=== PATIENT | female | born 1975 | race American Indian/Alaskan Native ===

== ENCOUNTER 2018-02-16 08:38 | Emergency (ER) | payer SELFPAY ==
[2018-02-16 08:52] VITALS: BP 126/69
[2018-02-16 10:12] LABS: Basophils # (Auto) 0.1 K/mm3 (0.0-0.1); Basophils % (Auto) 1.4 % (0.0-1.8); Eosinophils # (Auto) 0.1 K/mm3 (0.0-0.4); Eosinophils % (Auto) 1.1 % (0.0-4.3); Hematocrit 24.3 % (30.3-42.9); Hemoglobin 7.6 gm/dl (10.1-14.3); Lymphocytes # (Auto) 1.4 K/mm3 (1.2-5.4); Lymphocytes % (Auto) 17.9 % (13.4-35.0); Mean Corpuscular HGB Conc 31 % (30-34); Mean Corpuscular Hemoglobin 23 pg (28-32); Mean Corpuscular Volume 74 fl (79-97); Monocytes # (Auto) 0.4 K/mm3 (0.0-0.8); Monocytes % (Auto) 4.5 % (0.0-7.3); Platelet Count 258 K/mm3 (140-440); Red Blood Count 3.27 M/mm3 (3.65-5.03); Red Cell Distribution Width 26.1 % (13.2-15.2)
--- NOTE | 2018-02-16 11:58 | Emergency Department Report ---
HPI - General Chief Complaint: Vaginal Bleeding Time Seen by Provider: 02/16/18 11:46 - HPI HPI: The patient is a 43-year-old female presents for evaluation of vaginal bleeding. The patient reports experiencing constant and severe vaginal bleeding for the past 2 weeks, exacerbated with straining on urination/ defecation. The patient denies fever, chills, night sweats, hematemesis, recurrent epistaxis, easy bruising or bleeding, blood in the stool, dark tarry stool, hematuria, flank pain, inability to pass flatus. ED Past Medical Hx - Past Medical History Previous Medical History?: No - Surgical History Additional Surgical History: TUBAL LIGATION - Social History Smoking Status: Never Smoker Substance Use Type: None - Medications Home Medications: Home Medications Medication Instructions Recorded Confirmed Last Taken Type Ferrous Sulfate [Iron] 325 mg PO BID #60 tablet 02/16/18 Unknown Rx Ferrous Sulfate, Dried [Slow 160 mg PO BID #30 tablet.er 02/16/18 Unknown Rx Release Iron 160 Mg tab] medroxyPROGESTERone ACETATE 5 mg PO QDAY #5 tablet 02/16/18 Unknown Rx [Provera] ED Review of Systems ROS: Stated complaint: VAGINAL BLEEDING Other details as noted in HPI Constitutional: denies: fever ENT: denies: throat or neck pain Respiratory: denies: cough, shortness of breath Cardiovascular: denies: chest pain Endocrine: denies unexplained weight loss or gain Gastrointestinal: denies: abdominal pain, nausea Genitourinary: reports vaginal bleeding denies: dysuria Musculoskeletal: denies: leg swelling Skin: denies: rash Neurological: denies: headache Hematological/Lymphatic: denies: easy bleeding or easy bruising Psych: denies sadness or hopelessness Physical Exam - Physical Exam Vital Signs: Vital Signs 02/16/18 08:46 Temperature 99.5 F Pulse Rate 60 Respiratory 18 Rate Blood Pressure 126/69 O2 Sat by Pulse 100 Oximetry Physical Exam: General: well-nourished, well-developed, no acute distress Head: Normocephalic, atraumatic Eyes: normal sclera ENT: Mucous membranes are pale and dry Neck: trachea midline, neck supple, No neck stiffness, no cervical adenopathy Respiratory: Breath sounds equal bilaterally, no wheezing, rales, or rhonchi Cardio: S1 and S2 present, no murmurs, rubs, gallops, capillary refill is delayed Abdomen: Normoactive bowel sounds, soft abdomen, no tenderness Musc: No pitting edema Skin: No rash Neuro: no facial drooping, normal speech Psych: Normal affect ED Course Vital Signs 02/16/18 08:46 Temperature 99.5 F Pulse Rate 60 Respiratory 18 Rate Blood Pressure 126/69 O2 Sat by Pulse 100 Oximetry ED Medical Decision Making - Lab Data Result diagrams: 02/16/18 09:31 - Medical Decision Making The patient was seen and examined by myself. The patient is placed on a cardiac rehab nurse and continuous pulse ox. On initial evaluation, the patient was found to be in no distress. Evaluation orders were placed. Lab results revealed elevated hemoglobin of 7.6, low hematocrit, and otherwise labs are grossly unrevealing including normal platelet levels and negative test. The patient is given a prescription for ferrous sulfate for treatment of her anemia. The patient was reevaluated and reported that she remains asymptomatic. The patient is stable for discharge with outpatient follow-up. The patient is given follow-up and return instructions. The patient expressed understanding and agreed with the plan. The patient is discharged in stable condition. Critical care attestation.: If time is entered above; I have spent that time in minutes in the direct care of this critically ill patient, excluding procedure time. ED Disposition Clinical Impression: Vaginal bleeding, DUB (dysfunctional uterine bleeding), Chronic blood loss anemia, Orthostatic lightheadedness Disposition: - TO HOME OR SELFCARE Is pt being admited?: No Does the pt Need Aspirin: No Condition: Stable Instructions: Dysfunctional Uterine Bleeding (ED), Menorrhagia (ED), Anemia (ED ) Prescriptions: Ferrous Sulfate [Iron] 325 mg PO BID #60 tablet Ferrous Sulfate, Dried [Slow Release Iron 160 Mg tab] 160 mg PO BID #30 tablet.er medroxyPROGESTERone ACETATE [Provera] 5 mg PO QDAY #5 tablet Referrals: RENATO SCOTT MD [Staff Physician] - 3-5 Days [facility] [Provider Group] - 3-5 Days Forms: Work/School Release Form(ED) Time of Disposition: 11:52
== END 2018-02-16 12:18 | disposition home or self-care (01) ==
LOC: ED 08:38
DX: N93.8 Other specified abnormal uterine and vaginal bleeding (principal); Z98.51 Tubal ligation status
CPT/HCPCS: 36415; 84703; 85025; 86850; 86900; 86901; 99283

== ENCOUNTER 2018-12-22 12:25 | Inpatient (IN) | payer BC ==
--- NOTE | 2018-12-22 12:37 | Emergency Department Report ---
Chief Complaint: Vaginal Bleeding Stated Complaint: HEAVY BLEEDING/WEAKNESS/SOB Time Seen by Provider: 12/22/18 12:33 - HPI History of Present Illness: This is a 43 y.o. female that presents with vaginal bleeding and lightheadedness. Patient reports vaginal bleeding started 3 days ago. She is passing large amount of clots. She reports dizziness started today. She denies back. - ROS Review of Systems: vaginal bleeding and pelvic pain - Exam Vital Signs: Vital Signs 12/22/18 12:32 Temperature 98.2 F Pulse Rate 84 Respiratory 16 Rate Blood Pressure 123/33 [Left] O2 Sat by Pulse 100 Oximetry MSE screening note: Focused history and physical exam performed. Due to findings the following was ordered: labs fast track for further evaluation. ED Disposition for MSE Condition: Stable
[2018-12-22] MEDS ORDERED: NACL 0.9% 1000 ML 1,000 ML IV ONE (13:38)
[2018-12-22 13:39] LABS: Mean Corpuscular HGB Conc 28 % (30-34); Red Blood Count 2.31 M/mm3 (3.65-5.03)
[2018-12-22 13:48] LABS: Mean Corpuscular Volume 63 fl (79-97); Red Cell Distribution Width 29.9 % (13.2-15.2)
--- NOTE | 2018-12-22 13:48 | Emergency Department Report ---
ED Female HPI - General Chief complaint: Vaginal Bleeding Stated complaint: HEAVY BLEEDING/WEAKNESS/SOB Time Seen by Provider: 12/22/18 12:33 Source: patient Mode of arrival: Ambulatory Limitations: No Limitations - History of Present Illness Initial comments: 43-year-old female states that she has just been having spotting for the past several months. She was treated for a "bacterial infection" by her varnisher in September (2017). She is status post tubal ligation. She states for the past 3 or 4 days she has been having heavy bleeding. She passed several clots today. She did note dyspnea on exertion and easy fatigability. She is not complaining of abdominal pain or pelvic pain. She is not short of breath at rest. MD Complaint: vaginal bleeding -: days(s) Improves with: none Worsens with: none - Related Data Previous Rx's Medication Instructions Recorded Last Taken Type Azithromycin [Zithromax TAB] 500 mg PO QDAY #5 tablet 12/25/18 Unknown Rx Ferrous Sulfate [Feosol 325 MG tab] 325 mg PO BID #60 tablet 12/25/18 Unknown Rx medroxyPROGESTERone ACETATE 10 mg PO QDAY #10 tablet 12/25/18 Unknown Rx [Provera] Allergies Allergy/AdvReac Type Severity Reaction Status Date / Time acetaminophen [From Percocet] Allergy Itching Verified 12/22/18 12:32 oxycodone [From Percocet] Allergy Itching Verified 12/22/18 12:32 Penicillins Allergy Hives Verified 02/16/18 08:46 ED Review of Systems ROS: Stated complaint: HEAVY BLEEDING/WEAKNESS/SOB Other details as noted in HPI Constitutional: denies: chills, fever Eyes: denies: eye pain, eye discharge, vision change ENT: denies: ear pain, throat pain Respiratory: SOB with exertion. denies: cough, wheezing Cardiovascular: denies: chest pain, palpitations Endocrine: no symptoms reported Gastrointestinal: denies: abdominal pain, nausea, diarrhea Genitourinary: as per HPI. denies: urgency, dysuria, discharge Musculoskeletal: denies: back pain, joint swelling, arthralgia Skin: denies: rash, lesions Neurological: denies: headache, weakness, paresthesias Psychiatric: denies: anxiety, depression Hematological/Lymphatic: denies: easy bleeding, easy bruising ED Past Medical Hx - Past Medical History Previous Medical History?: No - Surgical History Past Surgical History?: Yes Additional Surgical History: TUBAL LIGATION - Social History Smoking Status: Never Smoker Substance Use Type: None - Medications Home Medications: Home Medications Medication Instructions Recorded Confirmed Last Taken Type Azithromycin [Zithromax TAB] 500 mg PO QDAY #5 tablet 12/25/18 Unknown Rx Ferrous Sulfate [Feosol 325 MG tab] 325 mg PO BID #60 tablet 12/25/18 Unknown Rx medroxyPROGESTERone ACETATE 10 mg PO QDAY #10 tablet 12/25/18 Unknown Rx [Provera] ED Physical Exam - General Limitations: No Limitations General appearance: alert, in no apparent distress, other (conjunctival pallor moderate) - Head Head exam: Present: atraumatic, normocephalic - Eye Eye exam: Present: normal appearance. Absent: scleral icterus - ENT ENT exam: Present: mucous membranes moist - Neck Neck exam: Present: normal inspection. Absent: tenderness, meningismus - Respiratory Respiratory exam: Present: normal lung sounds bilaterally. Absent: respiratory distress - Cardiovascular Cardiovascular Exam: Present: regular rate, normal rhythm. Absent: systolic murmur, diastolic murmur, rubs, gallop - GI/Abdominal GI/Abdominal exam: Present: soft, normal bowel sounds. Absent: distended, tenderness, guarding, rebound, rigid - External exam: Present: other (no active bleeding at the introitus now) - Extremities Exam Extremities exam: Present: normal inspection - Back Exam Back exam: Present: normal inspection - Neurological Exam Neurological exam: Present: alert, oriented X3, CN II-XII intact. Absent: motor sensory deficit - Psychiatric Psychiatric exam: Present: normal affect, normal mood - Skin Skin exam: Present: warm, dry, intact, normal color. Absent: rash ED Course Vital Signs 12/22/18 12/22/18 12/22/18 12:32 14:00 14:31 Temperature 98.2 F 98 F Pulse Rate 84 88 84 Respiratory 16 16 16 Rate Blood Pressure 132/59 Blood Pressure 123/33 103/86 [Left] O2 Sat by Pulse 100 100 100 Oximetry 12/22/18 12/22/18 12/22/18 14:46 15:16 15:46 Temperature 98 F 98.8 F Pulse Rate 82 76 88 Respiratory 16 14 14 Rate Blood Pressure 132/59 118/51 131/65 Blood Pressure [Left] O2 Sat by Pulse 94 98 98 Oximetry 12/22/18 12/22/18 12/22/18 16:16 16:44 16:59 Temperature 98.8 F 98.8 F 98.8 F Pulse Rate 68 68 66 Respiratory 14 14 17 Rate Blood Pressure 130/67 148/61 142/55 Blood Pressure [Left] O2 Sat by Pulse 98 100 98 Oximetry 12/22/18 12/22/18 12/22/18 17:29 17:59 18:29 Temperature 99 F 99 F 98.7 F Pulse Rate 63 76 70 Respiratory 17 16 12 Rate Blood Pressure 127/62 118/60 118/62 Blood Pressure [Left] O2 Sat by Pulse 100 100 100 Oximetry 12/22/18 12/22/18 12/22/18 19:24 19:30 19:40 Temperature Pulse Rate 64 83 Respiratory 19 17 16 Rate Blood Pressure Blood Pressure [Left] O2 Sat by Pulse 100 100 Oximetry 12/22/18 12/22/18 12/22/18 19:50 20:00 20:10 Temperature 100 F H Pulse Rate 93 H 83 101 H Respiratory 18 13 14 Rate Blood Pressure Blood Pressure 117/60 [Left] O2 Sat by Pulse 100 92 99 Oximetry 12/22/18 12/22/18 12/22/18 20:20 20:30 20:40 Temperature Pulse Rate 88 88 91 H Respiratory 23 18 22 Rate Blood Pressure Blood Pressure [Left] O2 Sat by Pulse 98 95 73 L Oximetry 12/22/18 12/22/18 20:50 21:00 Temperature Pulse Rate 85 75 Respiratory 23 16 Rate Blood Pressure Blood Pressure [Left] O2 Sat by Pulse 74 L 82 L Oximetry - Reevaluation(s) Reevaluation #1: Awaiting slide review by hematology. The initial report of the platelet count was 25,000. I would be surprised if it's really that low. There is no additional coagulopathy. Patient is being transfused first 2 units[address] Case discussed with Dr[address] Parsons, [employer] OFFICER. Bridge orders to telemetry. Consult to Dr. Mayes regarding thrombocytopenia. 12/22/18 14:46 Reevaluation #2: Patient will likely require more than 2 units. Repeat CBC at 5 PM to assess progress as well as recheck the platelet count. 12/22/18 14:48 ED Medical Decision Making - Lab Data Result diagrams: 12/25/18 05:38 03/21/19 05:17 Laboratory Results - last 24 hr 12/22/18 12/22/18 12/22/18 12:50 12:53 12:57 WBC 13.6 H RBC 2.31 L Hgb 4.0 L* Hct 14.5 L* MCV 63 L MCH 17 L MCHC 28 L RDW 29.9 H PT INR APTT Total Bilirubin < 0.20 Direct Bilirubin < 0.2 Indirect Bilirubin 0.0 AST 15 ALT 8 Alkaline Phosphatase 56 Total Protein 6.2 L Albumin 3.8 L Albumin/Globulin Ratio 1.6 HCG, Qual Urine Color Yan[place] Urine Turbidity Cloudy Urine pH 6.0 Ur Specific [place] 1.020 Urine Protein 100 mg/dl Urine Glucose (UA) Neg Urine Ketones Neg Urine Blood Lg Urine Nitrite Neg Urine Bilirubin Neg Urine Urobilinogen < 2.0 Ur Leukocyte Esterase Tr Urine WBC (Auto) 3.0 Urine RBC (Auto) > 182.0 Urine Mucus Few Blood Type Antibody Screen Crossmatch 12/22/18 12/22/18 12/22/18 12:57 12:57 13:50 WBC RBC Hgb Hct MCV MCH MCHC RDW PT 14.6 INR 1.07 APTT 20.0 L Total Bilirubin Direct Bilirubin Indirect Bilirubin AST ALT Alkaline Phosphatase Total Protein Albumin Albumin/Globulin Ratio HCG, Qual Negative Urine Color Urine Turbidity Urine pH Ur Specific [place] Urine Protein Urine Glucose (UA) Urine Ketones Urine Blood Urine Nitrite Urine Bilirubin Urine Urobilinogen Ur Leukocyte Esterase Urine WBC (Auto) Urine RBC (Auto) Urine Mucus Blood Type A POSITIVE Antibody Screen Negative Crossmatch See Detail Laboratory Results - last 24 hr 12/22/18 12/22/18 12/22/18 12:50 12:53 12:57 WBC 13.6 H RBC 2.31 L Hgb 4.0 L* Hct 14.5 L* MCV 63 L MCH 17 L MCHC 28 L RDW 29.9 H Plt Count 25 L Add Manual Diff Complete Total Counted 100 Seg Neuts % (Manual) 88.0 H Band Neutrophils % 1.0 Lymphocytes % (Manual) 5.0 L Reactive Lymphs % (Man) 0 Monocytes % (Manual) 5.0 Eosinophils % (Manual) 0 Basophils % (Manual) 1.0 Metamyelocytes % 0 Myelocytes % 0 Promyelocytes % 0 Blast Cells % 0 Nucleated RBC % Not Reportable Seg Neutrophils # Man 12.0 H Band Neutrophils # 0.1 Lymphocytes # (Manual) 0.7 L Abs React Lymphs (Man) 0.0 Monocytes # (Manual) 0.7 Eosinophils # (Manual) 0.0 Basophils # (Manual) 0.1 Metamyelocytes # 0.0 Myelocytes # 0.0 Promyelocytes # 0.0 Blast Cells # 0.0 WBC Morphology Not Reportable Hypersegmented Neuts Not Reportable Hyposegmented Neuts Not Reportable Hypogranular Neuts Not Reportable Smudge Cells Not Reportable Toxic Granulation Not Reportable Toxic Vacuolation Not Reportable Dohle Bodies Not Reportable Pelger-Huet Anomaly Not Reportable Tu Rods Not Reportable Platelet Estimate Consistent w auto Clumped Platelets Not Reportable Plt Clumps, EDTA Not Reportable Large Platelets Not Reportable Giant Platelets Not Reportable Platelet Satelliting Not Reportable Plt Morphology Comment Not Reportable RBC Morphology Not Reportable Dimorphic RBCs Not Reportable Polychromasia Not Reportable Hypochromasia 3+ Poikilocytosis Not Reportable Anisocytosis 3+ Microcytosis 2+ Macrocytosis Not Reportable Spherocytes Not Reportable Pappenheimer Bodies Not Reportable Sickle Cells Not Reportable Target Cells Not Reportable Tear Drop Cells Few Ovalocytes Not Reportable Helmet Cells Not Reportable [place] Bodies Not Reportable Nettie Rings Not Reportable [place] Cells Not Reportable Bite Cells Not Reportable Crenated Cell Not Reportable Elliptocytes Not Reportable Acanthocytes (Spur) Not Reportable Rouleaux Not Reportable Hemoglobin C Crystals Not Reportable Schistocytes Not Reportable Malaria parasites Not Reportable Jordi Bodies Not Reportable Hem Pathologist Commnt No PT INR APTT Total Bilirubin < 0.20 Direct Bilirubin < 0.2 Indirect Bilirubin 0.0 AST 15 ALT 8 Alkaline Phosphatase 56 Total Protein 6.2 L Albumin 3.8 L Albumin/Globulin Ratio 1.6 HCG, Qual Urine Color [place] Urine Turbidity Cloudy Urine pH 6.0 Ur Specific [place] 1.020 Urine Protein 100 mg/dl Urine Glucose (UA) Neg Urine Ketones Neg Urine Blood Lg Urine Nitrite Neg Urine Bilirubin Neg Urine Urobilinogen < 2.0 Ur Leukocyte Esterase Tr Urine WBC (Auto) 3.0 Urine RBC (Auto) > 182.0 Urine Mucus Few Blood Type Antibody Screen Crossmatch 03/12/22/18 12/22/18 12:57 12:57 13:50 WBC RBC Hgb Hct MCV MCH MCHC RDW Plt Count Add Manual Diff Total Counted Seg Neuts % (Manual) Band Neutrophils % Lymphocytes % (Manual) Reactive Lymphs % (Man) Monocytes % (Manual) Eosinophils % (Manual) Basophils % (Manual) Metamyelocytes % Myelocytes % Promyelocytes % Blast Cells % Nucleated RBC % Seg Neutrophils # Man Band Neutrophils # Lymphocytes # (Manual) Abs React Lymphs (Man) Monocytes # (Manual) Eosinophils # (Manual) Basophils # (Manual) Metamyelocytes # Myelocytes # Promyelocytes # Blast Cells # WBC Morphology Hypersegmented Neuts Hyposegmented Neuts Hypogranular Neuts Smudge Cells Toxic Granulation Toxic Vacuolation Dohle Bodies Pelger-Huet Anomaly Tu Rods Platelet Estimate Clumped Platelets Plt Clumps, EDTA Large Platelets Giant Platelets Platelet Satelliting Plt Morphology Comment RBC Morphology Dimorphic RBCs Polychromasia Hypochromasia Poikilocytosis Anisocytosis Microcytosis Macrocytosis Spherocytes Pappenheimer Bodies Sickle Cells Target Cells Tear Drop Cells Ovalocytes Helmet Cells [place] Bodies Nettie Rings Gabrielle Cells Bite Cells Crenated Cell Elliptocytes Acanthocytes (Spur) Rouleaux Hemoglobin C Crystals Schistocytes Malaria parasites Jordi Bodies Hem Pathologist Commnt PT 14.6 INR 1.07 APTT 20.0 L Total Bilirubin Direct Bilirubin Indirect Bilirubin AST ALT Alkaline Phosphatase Total Protein Albumin Albumin/Globulin Ratio HCG, Qual Negative Urine Color Urine Turbidity Urine pH Ur Specific [place] Urine Protein Urine Glucose (UA) Urine Ketones Urine Blood Urine Nitrite Urine Bilirubin Urine Urobilinogen Ur Leukocyte Esterase Urine WBC (Auto) Urine RBC (Auto) Urine Mucus Blood Type A POSITIVE Antibody Screen Negative Crossmatch See Detail Critical Care Time: Yes Critical care time in (mins) excluding proc time.: 60 Critical care attestation.: If time is entered above; I have spent that time in minutes in the direct care of this critically ill patient, excluding procedure time. ED Disposition Clinical Impression: Vaginal bleeding, Symptomatic anemia, Thrombocytopenia Disposition: OP ADMIT IP TO THIS HOSP Is pt being admited?: Yes Does the pt Need Aspirin: No Condition: Good
[2018-12-22 13:51] LABS: Hematocrit 14.5 % (30.3-42.9)
[2018-12-22] MEDS ORDERED: NACL 0.9% 500 ML 500 ML IV ONE (13:55)
[2018-12-22 13:56] LABS: Bilirubin,Urine NEG (Negative); Blood,Urine LG (Negative); Mucus,Urine FEW /HPF; Urobilinogen,Urine < 2.0 mg/dL (<2.0)
[2018-12-22 14:05] LABS: Color,Urine Amber (Yellow); RBC,Urine > 182.0 /HPF (0.0-6.0)
[2018-12-22 14:13] LABS: Alanine Aminotransferase 8 units/L (7-56); Albumin 3.8 g/dL (3.9-5)
[2018-12-22 14:22] LABS: INR 1.07 (0.87-1.13)
[2018-12-22 14:23] LABS: Bilirubin,Direct < 0.2 mg/dL (0-0.2)
[2018-12-22 14:45] LABS: Anisocytosis 3+; Band Neutrophils # (Manual) 0.1 K/mm3; Eosinophils % (Manual) 0 % (0.0-4.3); Hypochromasia 3+; Platelet Estimate Consistent w Auto; Tear Drop Cells Few; Total Cells Counted 100
[2018-12-22 14:47] LABS: Platelet Count 25 K/mm3 (140-440)
--- NOTE | 2018-12-22 14:58 | XRay Report ---
AP CHEST: HISTORY: Difficulty in breathing AP view of the chest demonstrates a normal mediastinal and cardiac contour with clear lungs and normal bony and soft tissue structures. IMPRESSION: Unremarkable AP chest.
[2018-12-22 15:10] LABS: BUN/Creatinine Ratio 10; Blood Urea Nitrogen 6 mg/dL (7-17); Calcium 8.3 mg/dL (8.4-10.2); Hemolysis Index 0
--- NOTE | 2018-12-22 15:37 | Consultation ---
History of Present Illness - Reason for Consult Consult date: 12/22/18 medical management Requesting physician: BIJAN ALEX - History of Present Illness 43 YO Female with Menorrhagia, Anemia presents to ED for evaluation. Pt seen and evaluated in ED and found to have Symptomatic Anemia. Pt seen Consult placed for medical management. Pt found to have SIRS and Acidosis. Pt denies fever, chills, CP, Palpitations, NVD, Trauma, Skin Rash, BRBPR. Pt initiated on empiric IV antibiotic therapy with repeat CBC in AM. Pt undergoing PRBC transfusion at time of exam. Past History Past Medical History: anemia, other (menorrhagia) Past Surgical History: Other (tubal ligation) Social history: single. denies: smoking, alcohol abuse, prescription drug abuse Family history: no significant family history (reviewed) Medications and Allergies Allergies Allergy/AdvReac Type Severity Reaction Status Date / Time acetaminophen [From Percocet] Allergy Itching Verified 12/22/18 12:32 oxycodone [From Percocet] Allergy Itching Verified 12/22/18 12:32 Penicillins Allergy Hives Verified 02/16/18 08:46 Home Medications Medication Instructions Recorded Confirmed Last Taken Type No Known Home Medications [No 12/22/18 12/22/18 Unknown History Reported Home Medications] Review of Systems Constitutional: weakness, no weight loss, no weight gain, no fever Ears, nose, mouth and throat: no ear pain, no ear discharge, no tinnitis, no decreased hearing, no nose pain Breasts: no change in shape, no swelling, no mass Cardiovascular: no chest pain, no orthopnea, no palpitations, no rapid/irregular heart beat, no edema Respiratory: no cough, no cough with sputum, no excessive sputum, no hemoptysis Gastrointestinal: no nausea, no vomiting, no diarrhea, no constipation Genitourinary Female: menorrhagia, no pelvic pain, no flank pain Rectal: no pain, no incontinence, no bleeding Musculoskeletal: no neck stiffness, no neck pain, no shooting arm pain, no arm numbness/tingling, no low back pain, no shooting leg pain Integumentary: no rash, no pruritis, no jaundice, no boils Neurological: no transient paralysis, no paralysis, no weakness, no parathesias, no numbness, no tingling Psychiatric: no anxiety, no memory loss, no sleep disturbances, no insomnia, no hypersomnia Endocrine: no cold intolerance, no heat intolerance, no polyphagia, no excessive thirst, no polydipsia, no excessive sweating Hematologic/Lymphatic: no easy bruising, no easy bleeding Allergic/Immunologic: no urticaria, no allergic rhinitis, no wheezing Exam - Constitutional Vitals: Temp Pulse Resp BP Pulse Ox 98 F 82 16 132/59 94 12/22/18 14:46 12/22/18 14:46 12/22/18 14:46 12/22/18 14:46 12/22/18 14:46 General appearance: Present: mild distress, well-nourished - EENT Eyes: Present: PERRL ENT: hearing intact, clear oral mucosa - Neck Neck: Present: supple, normal ROM - Respiratory Respiratory effort: normal Respiratory: bilateral: CTA - Cardiovascular Heart Sounds: Present: S1 & S2. Absent: rub, click - Extremities Extremities: pulses symmetrical, No edema Peripheral Pulses: within normal limits - Abdominal General gastrointestinal: Present: soft, non-tender, non-distended, normal bowel sounds Female genitourinary: Present: normal - Integumentary Integumentary: Present: clear, warm, dry - Musculoskeletal Musculoskeletal: gait normal, strength equal bilaterally - Psychiatric Psychiatric: appropriate mood/affect, intact judgment & insight - Neurologic Neurologic: CNII-XII intact, moves all extremities Results - Labs CBC & Chem 7: 12/22/18 12:57 12/22/18 12:52 Labs: Abnormal lab results 12/22/18 12/22/18 12/22/18 Range/Units 12:52 12:53 12:57 WBC 13.6 H (4.5-11.0) K/mm3 RBC 2.31 L (3.65-5.03) M/mm3 Hgb 4.0 L* (10.1-14.3) gm/dl Hct 14.5 L* (30.3-42.9) % MCV 63 L (79-97) fl MCH 17 L (28-32) pg MCHC 28 L (30-34) % RDW 29.9 H (13.2-15.2) % Plt Count 25 L (140-440) K/mm3 Seg Neuts % (Manual) 88.0 H (40.0-70.0) % Lymphocytes % (Manual) 5.0 L (13.4-35.0) % Seg Neutrophils # Man 12.0 H (1.8-7.7) K/mm3 Lymphocytes # (Manual) 0.7 L (1.2-5.4) K/mm3 APTT (24.2-36.6) Sec. Carbon Dioxide 19 L (22-30) mmol/L BUN 6 L (7-17) mg/dL Creatinine 0.6 L (0.7-1.2) mg/dL Calcium 8.3 L (8.4-10.2) mg/dL Total Protein 6.2 L (6.3-8.2) g/dL Albumin 3.8 L (3.9-5) g/dL Crossmatch 12/22/18 12/22/18 Range/Units 12:57 13:50 WBC (4.5-11.0) K/mm3 RBC (3.65-5.03) M/mm3 Hgb (10.1-14.3) gm/dl Hct (30.3-42.9) % MCV (79-97) fl MCH (28-32) pg MCHC (30-34) % RDW (13.2-15.2) % Plt Count (140-440) K/mm3 Seg Neuts % (Manual) (40.0-70.0) % Lymphocytes % (Manual) (13.4-35.0) % Seg Neutrophils # Man (1.8-7.7) K/mm3 Lymphocytes # (Manual) (1.2-5.4) K/mm3 APTT 20.0 L (24.2-36.6) Sec. Carbon Dioxide (22-30) mmol/L BUN (7-17) mg/dL Creatinine (0.7-1.2) mg/dL Calcium (8.4-10.2) mg/dL Total Protein (6.3-8.2) g/dL Albumin (3.9-5) g/dL Crossmatch See Detail Assessment and Plan - Patient Problems (1) SIRS (systemic inflammatory response syndrome) Current Visit: Yes Status: Acute Plan to address problem: Empiric IV antibiotic therpay, CBC reviewed, repeat cbc in am. (2) Acidosis Current Visit: Yes Status: Acute Plan to address problem: IVF resuscitation therapy, repeat bmp in am. (3) Symptomatic anemia Current Visit: Yes Status: Acute Plan to address problem: PRBC transfusion as per primary team. (4) Thrombocytopenia Current Visit: Yes Status: Acute Plan to address problem: Platelet count normal at last admission. Repeat platelet count, consider platelet transfusion and hematology consult if repeat platelet count in still low. No active bleeding at time of exam. no skin petechiae.
[2018-12-22] MEDS ORDERED: VANCOMYCIN/NS 1 GM/250 ML 1 GM/250 ML BAG IV ONE (15:46)
[2018-12-22] MEDS ORDERED: NACL 0.45% 1,000 ML IV SCH (16:00)
--- NOTE | 2018-12-22 18:52 | History and Physical Report ---
History of Present Illness Date of examination: 12/22/18 Date of admission: 12/22/18 14:51 Chief complaint: Prolonged heavy vaginal bleeding History of present illness: Pt is a 43yo BF LMP 10/22/18 then she has just been having spotting for the past several months. She was treated for a "bacterial infection" by her appraisal technician in September (2017). She is status post tubal ligation. She states for the past 3 or 4 days she has been having heavy bleeding. She passed several clots today. She did note dyspnea on exertion and easy fatigability. She is not complaining of abdominal pain or pelvic pain. She is not short of breath at rest. 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 denies: smoking, alcohol abuse, prescription drug abuse - Obstetrical History : 3 Para: 3 (all 's) Number of Living Children: 3 Medications and Allergies Allergies Allergy/AdvReac Type Severity Reaction Status Date / Time acetaminophen [From Percocet] Allergy Itching Verified 12/22/18 12:32 oxycodone [From Percocet] Allergy Itching Verified 12/22/18 12:32 Penicillins Allergy Hives Verified 02/16/18 08:46 Home Medications Medication Instructions Recorded Confirmed Last Taken Type No Known Home Medications [No 12/22/18 12/22/18 Unknown History Reported Home Medications] Active Meds: Active Medications Sodium Chloride (Nacl 0.45%) 1,000 mls @ 100 mls/hr IV DIRECT KLAUS Review of Systems All systems: negative - Vital Signs Vital signs: Vital Signs Temp Pulse Resp BP Pulse Ox 98.2 F 84 16 123/33 100 12/22/18 12:32 12/22/18 12:32 12/22/18 12:32 12/22/18 12:32 12/22/18 12:32 Temp Pulse Resp BP Pulse Ox 99.2 F 72 14 128/95 100 12/22/18 18:29 12/22/18 18:29 12/22/18 18:29 12/22/18 18:29 12/22/18 18:29 - Physical Exam Breasts: Positive: deferred Cardiovascular: Regular rate Lungs: Positive: Clear to auscultation Abdomen: Positive: normal appearance Genitourinary (Female): Positive: normal external genitalia Uterus: Positive: enlarged Extremities: Positive: normal Results Result Diagrams: 12/22/18 12:57 12/22/18 12:52 Abnormal lab results 12/22/18 12/22/18 12/22/18 Range/Units 12:52 12:53 12:57 WBC 13.6 H (4.5-11.0) K/mm3 RBC 2.31 L (3.65-5.03) M/mm3 Hgb 4.0 L* (10.1-14.3) gm/dl Hct 14.5 L* (30.3-42.9) % MCV 63 L (79-97) fl MCH 17 L (28-32) pg MCHC 28 L (30-34) % RDW 29.9 H (13.2-15.2) % Plt Count 25 L (140-440) K/mm3 Seg Neuts % (Manual) 88.0 H (40.0-70.0) % Lymphocytes % (Manual) 5.0 L (13.4-35.0) % Seg Neutrophils # Man 12.0 H (1.8-7.7) K/mm3 Lymphocytes # (Manual) 0.7 L (1.2-5.4) K/mm3 APTT (24.2-36.6) Sec. Carbon Dioxide 19 L (22-30) mmol/L BUN 6 L (7-17) mg/dL Creatinine 0.6 L (0.7-1.2) mg/dL Calcium 8.3 L (8.4-10.2) mg/dL Total Protein 6.2 L (6.3-8.2) g/dL Albumin 3.8 L (3.9-5) g/dL Crossmatch 12/22/18 12/22/18 Range/Units 12:57 13:50 WBC (4.5-11.0) K/mm3 RBC (3.65-5.03) M/mm3 Hgb (10.1-14.3) gm/dl Hct (30.3-42.9) % MCV (79-97) fl MCH (28-32) pg MCHC (30-34) % RDW (13.2-15.2) % Plt Count (140-440) K/mm3 Seg Neuts % (Manual) (40.0-70.0) % Lymphocytes % (Manual) (13.4-35.0) % Seg Neutrophils # Man (1.8-7.7) K/mm3 Lymphocytes # (Manual) (1.2-5.4) K/mm3 APTT 20.0 L (24.2-36.6) Sec. Carbon Dioxide (22-30) mmol/L BUN (7-17) mg/dL Creatinine (0.7-1.2) mg/dL Calcium (8.4-10.2) mg/dL Total Protein (6.3-8.2) g/dL Albumin (3.9-5) g/dL Crossmatch See Detail All other labs normal. Ultrasound: report reviewed (uterus is enlarged with multiple fibroids) Assessment and Plan - Patient Problems (1) Uterine fibroid Onset Date: 12/22/18 Current Visit: Yes Status: Acute Qualifiers: Uterine leiomyoma location: intramural and submucous Qualified Code(s): D25.1 - Intramural leiomyoma of uterus; D25.0 - Submucous leiomyoma of uterus (2) Symptomatic anemia Onset Date: 12/22/18 Current Visit: Yes Status: Acute Plan to address problem: A: Symptomatic anemia - most likely due to Menorrhagia Menorrhagia - most likely due to uterine fibroids Thrombocytopenia - unknown etiology. Platelet count was 258K on 02/16/18 P: Agree with admission for blood transfusion Will need a Pap and endometrial biopsy on an out patient basis after discharge from the hospital Need Heme/Onc consultation re: Thrombocytopenia (3) Thrombocytopenia Onset Date: 12/22/18 Current Visit: Yes Status: Acute
[2018-12-22] MEDS ORDERED: ZOFRAN IV PRN (20:37)
[2018-12-22] MEDS ORDERED: COLACE PO PRN (20:37)
[2018-12-22 20:55] LABS: Hematocrit 20.8 % (30.3-42.9); Hemoglobin 6.6 gm/dl (10.1-14.3); Mean Corpuscular HGB Conc 32 % (30-34); Mean Corpuscular Volume 73 fl (79-97); Red Blood Count 2.86 M/mm3 (3.65-5.03)
[2018-12-22 20:59] LABS: Red Cell Distribution Width 38.1 % (13.2-15.2)
[2018-12-22 21:00] LABS: Platelet Count 24 K/mm3 (140-440)
--- NOTE | 2018-12-22 21:10 | Ultrasound Report ---
PROCEDURE: US PELVIC COMPLETE TECHNIQUE: Real-time transabdominal sonography in multiple planes of the pelvis was performed. The p elvic structures, especially the ovaries, were not optimally visualized. Transvaginal sonography was then performed to better evaluate the structures and/or abnormalities described below with image docu mentation. HISTORY: vaginal bleeding COMPARISONS: None . FINDINGS: UTERUS Size: 11.1 x 7.9 x 9.0 cm. Endometrial thickness: 9 mm. Orientation: Anteflexed. Cervix: Normal. Fibroids/masses: Several uterine fibroids are present. There is one in the anterior body which measur es up to 2.6 cm. There is a fibroid in the posterior fundus which measures up to 4.6 cm. There is a f ibroid in the posterior body which measures up to 3.9 cm. RIGHT Ovary: 4.2 x 2.6 x 4.3 cm. Appearance: There is a 3.2 cm simple cyst. LEFT Ovary: 2.6 x 1.5 x 2.7 cm. Appearance: Normal. Pelvic fluid: None. Other: None. IMPRESSION: Endometrium is within normal limits in thickness. Uterine fibroids. 3.2 cm simple right ovarian cyst. This document is electronically signed by Suellen Toney MD., December 22 2018 09:08:36 PM ET
[2018-12-22 21:36] LABS: Basophils % (Manual) 0 % (0.0-1.8); Eosinophils % (Manual) 0 % (0.0-4.3); Total Cells Counted 100
[2018-12-22 21:37] LABS: Platelet Estimate Appears Decreased
[2018-12-22 21:38] LABS: Anisocytosis 2+; Hypochromasia 2+; Schistocytes Few; Spherocytes 1+; Target Cells 1+
[2018-12-22 21:39] LABS: Tear Drop Cells 1+
[2018-12-22] MEDS: CLEOCIN 600 MG/50 mL 600 MG/50 ML BAG IV SCH (23:44)
[2018-12-22] MEDS: PROVERA PO SCH (23:44)
[2018-12-22] MEDS: LACTATED RINGERS 1,000 ML IV SCH (23:45)
[2018-12-23] MEDS ORDERED: NACL 0.9% 500 ML 500 ML IV ONE (01:45)
[2018-12-23] MEDS: CLEOCIN 600 MG/50 mL 600 MG/50 ML BAG IV SCH ×3 (06:50→21:41)
[2018-12-23] MEDS: PROVERA PO SCH (10:27)
[2018-12-23] MEDS: PRENATAL VITAMIN PO SCH (10:27)
[2018-12-23 14:14] LABS: Hematocrit 22.6 % (30.3-42.9); Hemoglobin 7.4 gm/dl (10.1-14.3); Mean Corpuscular HGB Conc 33 % (30-34); Mean Corpuscular Volume 73 fl (79-97); Red Blood Count 3.09 M/mm3 (3.65-5.03)
[2018-12-23 14:16] LABS: Red Cell Distribution Width 35.9 % (13.2-15.2)
[2018-12-23 14:31] LABS: BUN/Creatinine Ratio 7; Blood Urea Nitrogen 5 mg/dL (7-17); Calcium 8.7 mg/dL (8.4-10.2); Hemolysis Index 1
[2018-12-23] MEDS: LACTATED RINGERS 1,000 ML IV SCH ×2 (14:50→20:37)
[2018-12-23 15:18] LABS: Basophils % (Manual) 0 % (0.0-1.8); Total Cells Counted 100
[2018-12-23 15:20] LABS: Anisocytosis 2+; Hypochromasia 1+; Large Platelets Few; Platelet Estimate Consistent w Auto; Spherocytes Few
[2018-12-23 15:21] LABS: Platelet Count 34 K/mm3 (140-440); Schistocytes Rare; Target Cells Few; Tear Drop Cells Rare
--- NOTE | 2018-12-23 18:11 | Consultation ---
History of Present Illness Consult date: 12/23/18 Reason for consult: menorrhagia History of present illness: Patient is a 43 year old female who was admitted from the ER yesterday for symptomatic anemia with Hb of 4/14.5. She is a patient of [facility]. She was seen by Dr. El hubbard after her admission. She received 3 units of PRBCs. Her current H/H is 7.4/22.6. Pelvic sonogram showed the uterus to measure 11 x 9 cm, stripe 9 mm, multiple small myomae, right ovarian cyst 3.2 cm. She also had platelet of 25 which increased to 32 after the blood transfusion. Hematology consult was called. Patient denies any dizziness or chest pain currently. She only has spotting now. 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 Family/Genetic History: none - Obstetrical History : 3 Medications and Allergies Allergies Allergy/AdvReac Type Severity Reaction Status Date / Time acetaminophen [From Percocet] Allergy Itching Verified 12/22/18 12:32 oxycodone [From Percocet] Allergy Itching Verified 12/22/18 12:32 Penicillins Allergy Hives Verified 02/16/18 08:46 Home Medications Medication Instructions Recorded Confirmed Last Taken Type No Known Home Medications [No 12/22/18 12/22/18 Unknown History Reported Home Medications] Active Meds: Active Medications Docusate Sodium (Colace) 100 mg PO Q12H PRN PRN Reason: Constipation Sodium Chloride (Nacl 0.45%) 1,000 mls @ 100 mls/hr IV DIRECT KLAUS Clindamycin HCl (Cleocin 600 Mg/50 Ml) 600 mg in 50 mls @ 100 mls/hr IV Q8HR KLAUS; Protocol Last Admin: 12/23/18 14:49 Dose: 100 mls/hr Documented by: Lactated Ringer's (Lactated Ringers) 1,000 mls @ 125 mls/hr IV DIRECT KLAUS Last Admin: 12/23/18 14:50 Dose: 125 mls/hr Documented by: Medroxyprogesterone Acetate (Provera) 10 mg PO QDAY KLAUS Last Admin: 12/23/18 10:27 Dose: 10 mg Documented by: Multivitamins/Iron/Calcium ( Vitamin) 1 each PO QDAY KLAUS Last Admin: 12/23/18 10:27 Dose: 1 each Documented by: Ondansetron HCl (Zofran) 4 mg IV Q6H PRN PRN Reason: Nausea And Vomiting - Vital Signs Vital signs: Vital Signs Temp Pulse Resp BP Pulse Ox 98.2 F 84 16 123/33 100 12/22/18 12:32 12/22/18 12:32 12/22/18 12:32 12/22/18 12:32 12/22/18 12:32 Temp Pulse Resp BP Pulse Ox 97.6 F 94 H 19 133/56 100 12/23/18 16:00 12/23/18 17:41 12/23/18 17:41 12/23/18 17:41 12/23/18 17:41 - Physical Exam Cardiovascular: Normal S1, Normal S2 Vulva: both: normal Deep Tendon Reflex Grade: Normal +2 Results Result Diagrams: 12/23/18 13:56 12/23/18 13:56 Abnormal lab results 12/22/18 12/22/18 12/23/18 Range/Units 12:57 20:32 13:56 WBC 14.1 H 14.0 H (4.5-11.0) K/mm3 RBC 2.86 L 3.09 L (3.65-5.03) M/mm3 Hgb 6.6 L 7.4 L (10.1-14.3) gm/dl Hct 20.8 L D 22.6 L (30.3-42.9) % MCV 73 L 73 L (79-97) fl MCH 23 L 24 L (28-32) pg RDW 38.1 H 35.9 H (13.2-15.2) % Plt Count 24 L 34 L (140-440) K/mm3 Seg Neuts % (Manual) 85.0 H 85.0 H (40.0-70.0) % Lymphocytes % (Manual) 12.0 L 11.0 L (13.4-35.0) % Nucleated RBC % 1.0 H (0.0-0.9) % Seg Neutrophils # Man 12.0 H 11.9 H (1.8-7.7) K/mm3 Chloride (98-107) mmol/L BUN (7-17) mg/dL Glucose (65-100) mg/dL Crossmatch See Detail 12/23/18 Range/Units 13:56 WBC (4.5-11.0) K/mm3 RBC (3.65-5.03) M/mm3 Hgb (10.1-14.3) gm/dl Hct (30.3-42.9) % MCV (79-97) fl MCH (28-32) pg RDW (13.2-15.2) % Plt Count (140-440) K/mm3 Seg Neuts % (Manual) (40.0-70.0) % Lymphocytes % (Manual) (13.4-35.0) % Nucleated RBC % (0.0-0.9) % Seg Neutrophils # Man (1.8-7.7) K/mm3 Chloride 107.4 H (98-107) mmol/L BUN 5 L (7-17) mg/dL Glucose 113 H (65-100) mg/dL Crossmatch All other labs normal. Ultrasound: pending Assessment and Plan - Patient Problems (1) Menorrhagia Current Visit: Yes Status: Acute Plan to address problem: Bleeding has subsided. Patient will need endometrial biopsy after platelet improves. (2) Uterine fibroid Onset Date: 12/22/18 Current Visit: Yes Status: Acute Qualifiers: Uterine leiomyoma location: intramural Qualified Code(s): D25.1 - Intramural leiomyoma of uterus (3) Thrombocytopenia Current Visit: Yes Status: Acute Plan to address problem: I discussed the thrombocytopenia with her and I told her that the etiology needs to be found before she is discharged home. Hematology consult. May need FFP transfusion.
[2018-12-24] MEDS: LACTATED RINGERS 1,000 ML IV SCH ×4 (05:22→22:18)
[2018-12-24 05:56] LABS: Hematocrit 22.8 % (30.3-42.9); Hemoglobin 7.3 gm/dl (10.1-14.3); Mean Corpuscular HGB Conc 32 % (30-34); Mean Corpuscular Volume 74 fl (79-97); Red Blood Count 3.09 M/mm3 (3.65-5.03)
[2018-12-24 05:57] LABS: Platelet Count 60 K/mm3 (140-440)
[2018-12-24] MEDS: CLEOCIN 600 MG/50 mL 600 MG/50 ML BAG IV SCH ×3 (06:00→22:16)
[2018-12-24 06:21] LABS: BUN/Creatinine Ratio 4; Blood Urea Nitrogen 4 mg/dL (7-17); Calcium 8.4 mg/dL (8.4-10.2); Hemolysis Index 0; Iron 18 ug/dL (37-170); Total Iron Binding Capacity 288 mcg/dL (250-450)
[2018-12-24 07:36] LABS: Band Neutrophils # (Manual) 0.4 K/mm3; Basophils % (Manual) 0 % (0.0-1.8); Monocytes % (Manual) 0 % (0.0-7.3); Total Cells Counted 100
[2018-12-24 07:37] LABS: Anisocytosis 2+; Hypochromasia 1+; Ovalocytes 1+; Stomatocytes Few
[2018-12-24 07:38] LABS: Platelet Estimate Consistent w Auto; Tear Drop Cells Few
--- NOTE | 2018-12-24 07:56 | Progress Note ---
Assessment and Plan Leukocytosis, w/o clear source of infection - likely reactive, patient afebrile - cannot r/o acute bronchitis - started on abx empirically but no Cx was obtained - will order blood, urine cx, CXR Severe anemia, due to menorrhagia - Hb was 4.0 on admission - s/p PRBC transfusion, h/H now stable Iron defficiency, getting IV iron Metabolic acidosis, likely from dehydration, resolved with fluid Thrombocytopenia, improving, hematology consulted by primary Brief History: 43 YO Female with Menorrhagia, Anemia presented to ED for evaluation. Pt seen and evaluated in ED and found to have Symptomatic Anemia, tr ansfused 3 units of PRBC. Hospitalist Consulted for medical management. Pt found to have SIRS and Acidosis. Pt denies fever, chills, CP, Palpitations, NVD, Trauma, Skin Rash, BRBPR. Pt initiated on empiric IV antibiotic therapy and iv fluid. Subjective Date of service: 12/24/18 Interval history: Patient seen and examined c/p right lower chest pain and cough, worried that she might developed PNA, requesting for repeat XRY Objective - Constitutional Vitals: Vital Signs - 12hr 12/23/18 12/23/18 12/23/18 20:00 20:10 20:21 Temperature 99.7 F H Pulse Rate 61 68 59 L Respiratory 14 17 19 Rate Blood Pressure 106/64 114/31 116/71 O2 Sat by Pulse 100 100 99 Oximetry 12/23/18 12/23/18 12/23/18 20:30 20:41 20:51 Temperature Pulse Rate 64 59 L 60 Respiratory 16 10 L 13 Rate Blood Pressure 118/66 106/64 127/63 O2 Sat by Pulse 99 100 100 Oximetry 12/23/18 12/23/18 12/23/18 21:01 21:11 21:21 Temperature Pulse Rate 76 59 L 61 Respiratory 22 18 13 Rate Blood Pressure 127/63 127/63 124/60 O2 Sat by Pulse 100 100 98 Oximetry 12/23/18 12/23/18 12/23/18 21:31 21:41 21:51 Temperature Pulse Rate 62 62 59 L Respiratory 17 17 16 Rate Blood Pressure 141/63 141/63 150/69 O2 Sat by Pulse 100 99 100 Oximetry 12/23/18 12/23/18 12/23/18 22:00 22:11 22:20 Temperature Pulse Rate 61 58 L 60 Respiratory 17 19 19 Rate Blood Pressure 129/66 150/69 129/66 O2 Sat by Pulse 98 100 99 Oximetry 12/23/18 12/23/18 12/23/18 22:31 22:41 22:45 Temperature Pulse Rate 55 L 56 L 61 Respiratory 16 19 17 Rate Blood Pressure 157/76 129/66 129/66 O2 Sat by Pulse 99 99 100 Oximetry 12/23/18 12/23/18 12/23/18 22:51 23:00 23:11 Temperature Pulse Rate 88 59 L 60 Respiratory 28 H 17 19 Rate Blood Pressure 129/66 123/64 123/64 O2 Sat by Pulse 96 99 100 Oximetry 12/23/18 12/23/18 12/23/18 23:21 23:30 23:41 Temperature Pulse Rate 56 L 59 L 70 Respiratory 14 17 13 Rate Blood Pressure 132/60 124/50 123/64 O2 Sat by Pulse 98 99 100 Oximetry 12/23/18 12/24/18 12/24/18 23:51 00:00 00:11 Temperature 99.4 F Pulse Rate 52 L 54 L 59 L Respiratory 17 18 20 Rate Blood Pressure 124/38 123/59 123/59 O2 Sat by Pulse 100 99 98 Oximetry 12/24/18 12/24/18 12/24/18 00:21 00:30 00:41 Temperature Pulse Rate 59 L 59 L 57 L Respiratory 18 18 16 Rate Blood Pressure 111/50 107/48 107/48 O2 Sat by Pulse 97 97 98 Oximetry 12/24/18 12/24/18 12/24/18 00:51 01:00 01:11 Temperature Pulse Rate 58 L 57 L 59 L Respiratory 16 16 16 Rate Blood Pressure 115/49 108/47 108/47 O2 Sat by Pulse 98 98 96 Oximetry 12/24/18 12/24/18 12/24/18 01:20 01:31 01:41 Temperature Pulse Rate 56 L 56 L 57 L Respiratory 16 16 17 Rate Blood Pressure 120/49 118/52 118/52 O2 Sat by Pulse 98 98 98 Oximetry 12/24/18 12/24/18 12/24/18 01:51 02:00 02:11 Temperature Pulse Rate 57 L 56 L 56 L Respiratory 17 16 16 Rate Blood Pressure 115/54 117/49 117/49 O2 Sat by Pulse 97 97 97 Oximetry 12/24/18 12/24/18 12/24/18 02:21 02:31 02:41 Temperature Pulse Rate 50 L 52 L 54 L Respiratory 14 15 16 Rate Blood Pressure 123/49 136/58 136/58 O2 Sat by Pulse 99 98 99 Oximetry 12/24/18 12/24/18 12/24/18 02:51 03:01 03:11 Temperature Pulse Rate 54 L 66 53 L Respiratory 13 19 17 Rate Blood Pressure 136/58 60/45 60/45 O2 Sat by Pulse 98 94 100 Oximetry 12/24/18 12/24/18 12/24/18 03:21 03:31 03:41 Temperature Pulse Rate 52 L 56 L 55 L Respiratory 13 16 16 Rate Blood Pressure 60/45 156/99 156/99 O2 Sat by Pulse 100 100 100 Oximetry 12/24/18 12/24/18 12/24/18 03:51 04:00 04:11 Temperature 98.2 F Pulse Rate 54 L 54 L 56 L Respiratory 16 16 14 Rate Blood Pressure 156/99 165/98 140/79 O2 Sat by Pulse 98 98 98 Oximetry 12/24/18 12/24/18 12/24/18 04:21 04:31 04:41 Temperature Pulse Rate 53 L 54 L 54 L Respiratory 15 14 16 Rate Blood Pressure 140/79 144/65 144/65 O2 Sat by Pulse 97 98 97 Oximetry 12/24/18 12/24/18 12/24/18 04:50 05:00 05:11 Temperature Pulse Rate 53 L 53 L 52 L Respiratory 15 15 13 Rate Blood Pressure 136/76 148/73 148/73 O2 Sat by Pulse 97 97 100 Oximetry 12/24/18 12/24/18 12/24/18 05:21 05:31 05:41 Temperature Pulse Rate 54 L 56 L 68 Respiratory 12 20 15 Rate Blood Pressure 136/76 117/51 117/51 O2 Sat by Pulse 99 100 96 Oximetry 12/24/18 12/24/18 12/24/18 05:51 06:01 06:11 Temperature Pulse Rate 56 L 55 L 81 Respiratory 15 14 19 Rate Blood Pressure 140/50 120/60 120/60 O2 Sat by Pulse 100 100 98 Oximetry 12/24/18 12/24/18 12/24/18 06:21 06:30 06:41 Temperature Pulse Rate 48 L 58 L 58 L Respiratory 17 16 12 Rate Blood Pressure 140/50 119/74 119/74 O2 Sat by Pulse 100 99 100 Oximetry 12/24/18 12/24/18 12/24/18 06:51 07:00 07:11 Temperature Pulse Rate 59 L 53 L 57 L Respiratory 16 15 15 Rate Blood Pressure 118/77 111/48 111/48 O2 Sat by Pulse 100 99 100 Oximetry 12/24/18 07:21 Temperature Pulse Rate 57 L Respiratory 10 L Rate Blood Pressure 117/57 O2 Sat by Pulse 99 Oximetry General appearance: Present: no acute distress, well-nourished - EENT Eyes: PERRL, EOM intact ENT: hearing intact, clear oral mucosa Ears: bilateral: normal - Neck Neck: supple, normal ROM - Respiratory Respiratory effort: normal Respiratory: bilateral: CTA - Cardiovascular Rhythm: regular Heart Sounds: Present: S1 & S2. Absent: gallop, rub Extremities: pulses intact, No edema, normal color, Full ROM - Gastrointestinal General gastrointestinal: Present: soft, non-tender, non-distended, normal bowel sounds - Integumentary Integumentary: clear, warm, dry - Musculoskeletal Musculoskeletal: 1, strength equal bilaterally - Neurologic Neurologic: moves all extremities - Psychiatric Psychiatric: memory intact, appropriate mood/affect, intact judgment & insight - Labs CBC & Chem 7: 12/25/18 05:38 12/24/18 05:17 Labs: Abnormal lab results 12/23/18 12/23/18 12/24/18 Range/Units 13:56 13:56 05:17 WBC 14.0 H 12.5 H (4.5-11.0) K/mm3 RBC 3.09 L 3.09 L (3.65-5.03) M/mm3 Hgb 7.4 L 7.3 L (10.1-14.3) gm/dl Hct 22.6 L 22.8 L (30.3-42.9) % MCV 73 L 74 L (79-97) fl MCH 24 L 24 L (28-32) pg RDW 35.9 H 36.0 H (13.2-15.2) % Plt Count 34 L 60 L (140-440) K/mm3 Seg Neuts % (Manual) 85.0 H 77.0 H (40.0-70.0) % Lymphocytes % (Manual) 11.0 L (13.4-35.0) % Seg Neutrophils # Man 11.9 H 9.6 H (1.8-7.7) K/mm3 Chloride 107.4 H (98-107) mmol/L Carbon Dioxide (22-30) mmol/L BUN 5 L (7-17) mg/dL Glucose 113 H (65-100) mg/dL Iron (37-170) ug/dL Ferritin (13.0-400.0) ng/mL 12/24/18 12/24/18 Range/Units 05:17 05:17 WBC (4.5-11.0) K/mm3 RBC (3.65-5.03) M/mm3 Hgb (10.1-14.3) gm/dl Hct (30.3-42.9) % MCV (79-97) fl MCH (28-32) pg RDW (13.2-15.2) % Plt Count (140-440) K/mm3 Seg Neuts % (Manual) (40.0-70.0) % Lymphocytes % (Manual) (13.4-35.0) % Seg Neutrophils # Man (1.8-7.7) K/mm3 Chloride (98-107) mmol/L Carbon Dioxide 21 L (22-30) mmol/L BUN 4 L (7-17) mg/dL Glucose (65-100) mg/dL Iron 18 L (37-170) ug/dL Ferritin 11.8 L (13.0-400.0) ng/mL
--- NOTE | 2018-12-24 08:05 | Progress Note ---
Assessment and Plan (1) Symptomatic anemia Current Visit: Yes Status: Acute Plan to address problem: PRBC transfusion ---Improved to 7.4 Hemoglobin (2) Thrombocytopenia Current Visit: Yes Status: Acute Plan to address problem: Platelet count normal at last admission. Etio -Unclear Not Bleeding from anywhere Hem onc consult ordered ( 3)DVT prophylaxis On SCD's Subjective Date of service: 12/23/18 Principal diagnosis: Severe Anemia Interval history: Smptomatically better Objective - Constitutional Vitals: Vital Signs - 12hr 12/23/18 12/23/18 12/23/18 20:10 20:21 20:30 Temperature Pulse Rate 68 59 L 64 Respiratory 17 19 16 Rate Blood Pressure 114/31 116/71 118/66 O2 Sat by Pulse 100 99 99 Oximetry 12/23/18 12/23/18 12/23/18 20:41 20:51 21:01 Temperature Pulse Rate 59 L 60 76 Respiratory 10 L 13 22 Rate Blood Pressure 106/64 127/63 127/63 O2 Sat by Pulse 100 100 100 Oximetry 12/23/18 12/23/18 12/23/18 21:11 21:21 21:31 Temperature Pulse Rate 59 L 61 62 Respiratory 18 13 17 Rate Blood Pressure 127/63 124/60 141/63 O2 Sat by Pulse 100 98 100 Oximetry 12/23/18 12/23/18 12/23/18 21:41 21:51 22:00 Temperature Pulse Rate 62 59 L 61 Respiratory 17 16 17 Rate Blood Pressure 141/63 150/69 129/66 O2 Sat by Pulse 99 100 98 Oximetry 12/23/18 12/23/18 12/23/18 22:11 22:20 22:31 Temperature Pulse Rate 58 L 60 55 L Respiratory 19 19 16 Rate Blood Pressure 150/69 129/66 157/76 O2 Sat by Pulse 100 99 99 Oximetry 12/23/18 12/23/18 12/23/18 22:41 22:45 22:51 Temperature Pulse Rate 56 L 61 88 Respiratory 19 17 28 H Rate Blood Pressure 129/66 129/66 129/66 O2 Sat by Pulse 99 100 96 Oximetry 12/23/18 12/23/18 12/23/18 23:00 23:11 23:21 Temperature Pulse Rate 59 L 60 56 L Respiratory 17 19 14 Rate Blood Pressure 123/64 123/64 132/60 O2 Sat by Pulse 99 100 98 Oximetry 12/23/18 12/23/18 12/23/18 23:30 23:41 23:51 Temperature Pulse Rate 59 L 70 52 L Respiratory 17 13 17 Rate Blood Pressure 124/50 123/64 124/38 O2 Sat by Pulse 99 100 100 Oximetry 12/24/18 12/24/18 12/24/18 00:00 00:11 00:21 Temperature 99.4 F Pulse Rate 54 L 59 L 59 L Respiratory 18 20 18 Rate Blood Pressure 123/59 123/59 111/50 O2 Sat by Pulse 99 98 97 Oximetry 12/24/18 12/24/18 12/24/18 00:30 00:41 00:51 Temperature Pulse Rate 59 L 57 L 58 L Respiratory 18 16 16 Rate Blood Pressure 107/48 107/48 115/49 O2 Sat by Pulse 97 98 98 Oximetry 12/24/18 12/24/18 12/24/18 01:00 01:11 01:20 Temperature Pulse Rate 57 L 59 L 56 L Respiratory 16 16 16 Rate Blood Pressure 108/47 108/47 120/49 O2 Sat by Pulse 98 96 98 Oximetry 12/24/18 12/24/18 12/24/18 01:31 01:41 01:51 Temperature Pulse Rate 56 L 57 L 57 L Respiratory 16 17 17 Rate Blood Pressure 118/52 118/52 115/54 O2 Sat by Pulse 98 98 97 Oximetry 12/24/18 12/24/18 12/24/18 02:00 02:11 02:21 Temperature Pulse Rate 56 L 56 L 50 L Respiratory 16 16 14 Rate Blood Pressure 117/49 117/49 123/49 O2 Sat by Pulse 97 97 99 Oximetry 12/24/18 12/24/18 12/24/18 02:31 02:41 02:51 Temperature Pulse Rate 52 L 54 L 54 L Respiratory 15 16 13 Rate Blood Pressure 136/58 136/58 136/58 O2 Sat by Pulse 98 99 98 Oximetry 12/24/18 12/24/18 12/24/18 03:01 03:11 03:21 Temperature Pulse Rate 66 53 L 52 L Respiratory 19 17 13 Rate Blood Pressure 60/45 60/45 60/45 O2 Sat by Pulse 94 100 100 Oximetry 12/24/18 12/24/18 12/24/18 03:31 03:41 03:51 Temperature Pulse Rate 56 L 55 L 54 L Respiratory 16 16 16 Rate Blood Pressure 156/99 156/99 156/99 O2 Sat by Pulse 100 100 98 Oximetry 12/24/18 12/24/18 12/24/18 04:00 04:11 04:21 Temperature 98.2 F Pulse Rate 54 L 56 L 53 L Respiratory 16 14 15 Rate Blood Pressure 165/98 140/79 140/79 O2 Sat by Pulse 98 98 97 Oximetry 12/24/18 12/24/18 12/24/18 04:31 04:41 04:50 Temperature Pulse Rate 54 L 54 L 53 L Respiratory 14 16 15 Rate Blood Pressure 144/65 144/65 136/76 O2 Sat by Pulse 98 97 97 Oximetry 12/24/18 12/24/18 12/24/18 05:00 05:11 05:21 Temperature Pulse Rate 53 L 52 L 54 L Respiratory 15 13 12 Rate Blood Pressure 148/73 148/73 136/76 O2 Sat by Pulse 97 100 99 Oximetry 12/24/18 12/24/18 12/24/18 05:31 05:41 05:51 Temperature Pulse Rate 56 L 68 56 L Respiratory 20 15 15 Rate Blood Pressure 117/51 117/51 140/50 O2 Sat by Pulse 100 96 100 Oximetry 12/24/18 12/24/18 12/24/18 06:01 06:11 06:21 Temperature Pulse Rate 55 L 81 48 L Respiratory 14 19 17 Rate Blood Pressure 120/60 120/60 140/50 O2 Sat by Pulse 100 98 100 Oximetry 12/24/18 12/24/18 12/24/18 06:30 06:41 06:51 Temperature Pulse Rate 58 L 58 L 59 L Respiratory 16 12 16 Rate Blood Pressure 119/74 119/74 118/77 O2 Sat by Pulse 99 100 100 Oximetry 12/24/18 12/24/18 12/24/18 07:00 07:11 07:21 Temperature Pulse Rate 53 L 57 L 57 L Respiratory 15 15 10 L Rate Blood Pressure 111/48 111/48 117/57 O2 Sat by Pulse 99 100 99 Oximetry General appearance: Present: no acute distress, well-nourished - EENT Eyes: PERRL, EOM intact ENT: hearing intact, clear oral mucosa Ears: bilateral: normal - Neck Neck: supple, normal ROM - Respiratory Respiratory effort: normal Respiratory: bilateral: CTA - Breasts Breasts: normal - Cardiovascular Heart rate: 78 Rhythm: regular Heart Sounds: Present: S1 & S2. Absent: gallop, rub Extremities: pulses intact, No edema, normal color, Full ROM - Gastrointestinal General gastrointestinal: Present: soft, non-tender, non-distended, normal bowel sounds - Genitourinary Female genitourinary: normal - Integumentary Integumentary: clear, warm, dry - Musculoskeletal Musculoskeletal: 1, strength equal bilaterally - Neurologic Neurologic: moves all extremities - Psychiatric Psychiatric: memory intact, appropriate mood/affect, intact judgment & insight - Labs CBC & Chem 7: 12/24/18 05:17 12/24/18 05:17 Labs: Abnormal lab results 12/23/18 12/23/18 12/24/18 Range/Units 13:56 13:56 05:17 WBC 14.0 H 12.5 H (4.5-11.0) K/mm3 RBC 3.09 L 3.09 L (3.65-5.03) M/mm3 Hgb 7.4 L 7.3 L (10.1-14.3) gm/dl Hct 22.6 L 22.8 L (30.3-42.9) % MCV 73 L 74 L (79-97) fl MCH 24 L 24 L (28-32) pg RDW 35.9 H 36.0 H (13.2-15.2) % Plt Count 34 L 60 L (140-440) K/mm3 Seg Neuts % (Manual) 85.0 H 77.0 H (40.0-70.0) % Lymphocytes % (Manual) 11.0 L (13.4-35.0) % Seg Neutrophils # Man 11.9 H 9.6 H (1.8-7.7) K/mm3 Chloride 107.4 H (98-107) mmol/L Carbon Dioxide (22-30) mmol/L BUN 5 L (7-17) mg/dL Glucose 113 H (65-100) mg/dL Iron (37-170) ug/dL Ferritin (13.0-400.0) ng/mL 12/24/18 12/24/18 Range/Units 05:17 05:17 WBC (4.5-11.0) K/mm3 RBC (3.65-5.03) M/mm3 Hgb (10.1-14.3) gm/dl Hct (30.3-42.9) % MCV (79-97) fl MCH (28-32) pg RDW (13.2-15.2) % Plt Count (140-440) K/mm3 Seg Neuts % (Manual) (40.0-70.0) % Lymphocytes % (Manual) (13.4-35.0) % Seg Neutrophils # Man (1.8-7.7) K/mm3 Chloride (98-107) mmol/L Carbon Dioxide 21 L (22-30) mmol/L BUN 4 L (7-17) mg/dL Glucose (65-100) mg/dL Iron 18 L (37-170) ug/dL Ferritin 11.8 L (13.0-400.0) ng/mL Short CBC 12/23/18 12/24/18 Range/Units 13:56 05:17 WBC 14.0 H 12.5 H (4.5-11.0) K/mm3 Hgb 7.4 L 7.3 L (10.1-14.3) gm/dl Hct 22.6 L 22.8 L (30.3-42.9) % Plt Count 34 L 60 L (140-440) K/mm3 BMP 12/23/18 12/24/18 13:56 05:17 Sodium 137 140 Potassium 4.1 4.0 Chloride 107.4 H 106.9 Carbon Dioxide 24 21 L BUN 5 L 4 L Creatinine 0.7 0.9 Glucose 113 H 93 Calcium 8.7 8.4
--- NOTE | 2018-12-24 08:55 | Event Note ---
Date: 12/24/18 [id number]
[2018-12-24] MEDS: PRENATAL VITAMIN PO SCH (09:13)
[2018-12-24] MEDS: PROVERA PO SCH (09:13)
--- NOTE | 2018-12-24 09:58 | Consultation ---
REFERRING PHYSICIAN: Dr. Villalobos. REASON FOR CONSULTATION: Anemia. HISTORY OF PRESENT ILLNESS: I saw this patient, a 43-year-old female in the medical floor. The patient has moved from [place] about a year ago. She has been having a history of heavy cycles for 2 days, but this time it lasted longer and has been passing clots. She came to the hospital because of same. She had seen her blockers skiver in September and was told there was a bacterial infection. She was found to have low platelets and low blood count. Blood transfusion has been given. Platelets were not given. Platelets have improved. I have been asked to evaluate the patient for low platelet and anemia. At this time, no headache, no visual disturbances. No ear discharge, no chest pain, no abdominal pain, no vomiting, no diarrhea, no dysuria. Anemia in the past. The patient says that in 2018, platelets were normal. She was anemic. PAST MEDICAL HISTORY: Anemia, menorrhagia. GYNECOLOGIC HISTORY: Fibroids. SOCIAL HISTORY: No history of smoking. MEDICATIONS: Reviewed, which include clindamycin, Provera. PHYSICAL EXAMINATION: VITAL SIGNS: Temperature 98.9, pulse 57, respirations 12, and BP 108/51. HEENT: Pallor present, no icterus. NECK: No neck lymph nodes. HEART: S1, S2. CHEST: Lungs clear to auscultation. ABDOMEN: Soft. No guarding. NEUROLOGIC: Alert, awake, oriented. LABORATORY DATA: White cell is 12, hemoglobin at admission was 4, MCV was 63, platelet was 25. Now platelets have become 60. Hemoglobin is 7.3 after transfusion support. Potassium 4, creatinine 0.9, calcium is 8.4. Ferritin 11.8, serum iron 18, B12 of 451, folate 11. RADIOLOGY: Ultrasound was done, which showed uterine fibroids. ASSESSMENT AND PLAN: 1. Anemia secondary to menorrhagia. 2. Iron deficiency. 3. Blood transfusion given. 4. Low platelet. The question arises if the significant drop of platelets is secondary to consumption or other etiology. Platelet count was normal in 02/2018, we will watch the trend. B12 and folate levels were normal. 5. Ultrasound shows fibroids. We will get a smear evaluation and I will follow the patient. We will look into iron and support for now. JOB# [id number] ASHLEY/NTS
[2018-12-24] MEDS ORDERED: FERRLECIT 125 MG in NACL 0.9% 100 ML IV ONE (10:00)
--- NOTE | 2018-12-24 10:33 | Progress Note ---
Assessment and Plan - Patient Problems (1) Uterine fibroid Onset Date: 12/22/18 Current Visit: Yes Status: Acute Qualifiers: Uterine leiomyoma location: intramural Qualified Code(s): D25.1 - Intr amural leiomyoma of uterus (2) Symptomatic anemia Onset Date: 12/22/18 Current Visit: Yes Status: Acute Plan to address problem: A: Symptomatic anemia - most likely due to Menorrhagia Menorrhagia - most likely due to uterine fibroids Thrombocytopenia - improving. P: Continue present management Will need a Pap and endometrial biopsy on an out patient basis after discharge from the hospital Appreciate Heme/Onc consultation re: Thrombocytopenia (3) Thrombocytopenia Onset Date: 12/22/18 Current Visit: Yes Status: Acute Subjective - Subjective Date of service: 12/24/18 Principal diagnosis: Severe Anemia - resolved; Thrombocytopenia- improving Interval history: Discussed results of pelvic u/s showing an enlarged uterus with multiple fibroids. She states her bleeding started again today and complains of a productive cough. Patient reports: appetite normal, voiding normally, pain well controlled Objective - Vital Signs Latest vital signs: Vital Signs Temp Pulse Pulse Pulse Pulse Resp BP 12/24/18 09:51 61 17 129/69 12/24/18 09:41 61 16 130/59 12/24/18 09:31 53 L 22 130/59 12/24/18 09:21 59 L 17 131/72 12/24/18 09:11 63 17 113/52 12/24/18 09:01 73 25 H 113/52 12/24/18 08:51 57 L 15 113/52 12/24/18 08:41 57 L 16 140/59 12/24/18 08:31 55 L 16 140/59 12/24/18 08:21 57 L 12 108/51 12/24/18 08:11 81 23 108/51 12/24/18 08:01 60 16 108/51 12/24/18 08:00 98.9 F 57 L 16 12/24/18 07:51 57 L 14 140/59 12/24/18 07:41 59 L 20 118/61 12/24/18 07:30 56 L 16 118/61 12/24/18 07:21 57 L 10 L 117/57 12/24/18 07:11 57 L 15 111/48 12/24/18 07:00 53 L 15 111/48 12/24/18 06:51 59 L 16 118/77 12/24/18 06:41 58 L 12 119/74 12/24/18 06:30 58 L 16 119/74 12/24/18 06:21 48 L 17 140/50 12/24/18 06:11 81 19 120/60 12/24/18 06:01 55 L 14 120/60 12/24/18 05:51 56 L 15 140/50 12/24/18 05:41 68 15 117/51 12/24/18 05:31 56 L 20 117/51 12/24/18 05:21 54 L 12 136/76 12/24/18 05:11 52 L 13 148/73 12/24/18 05:00 53 L 15 148/73 12/24/18 04:50 53 L 15 136/76 12/24/18 04:41 54 L 16 144/65 12/24/18 04:31 54 L 14 144/65 12/24/18 04:21 53 L 15 140/79 12/24/18 04:11 56 L 14 140/79 12/24/18 04:00 98.2 F 54 L 16 165/98 12/24/18 03:51 54 L 16 156/99 12/24/18 03:41 55 L 16 156/99 12/24/18 03:31 56 L 16 156/99 12/24/18 03:21 52 L 13 60/45 12/24/18 03:11 53 L 17 60/45 12/24/18 03:01 66 19 60/45 12/24/18 02:51 54 L 13 136/58 12/24/18 02:41 54 L 16 136/58 12/24/18 02:31 52 L 15 136/58 12/24/18 02:21 50 L 14 123/49 12/24/18 02:11 56 L 16 117/49 12/24/18 02:00 56 L 16 117/49 12/24/18 01:51 57 L 17 115/54 12/24/18 01:41 57 L 17 118/52 12/24/18 01:31 56 L 16 118/52 12/24/18 01:20 56 L 16 120/49 12/24/18 01:11 59 L 16 108/47 03/21/19 01:00 57 L 16 108/47 12/24/18 00:51 58 L 16 115/49 12/24/18 00:41 57 L 16 107/48 12/24/18 00:30 59 L 18 107/48 12/24/18 00:21 59 L 18 111/50 12/24/18 00:11 59 L 20 123/59 12/24/18 00:00 99.4 F 54 L 18 123/59 12/23/18 23:51 52 L 17 124/38 12/23/18 23:41 70 13 123/64 12/23/18 23:30 59 L 17 124/50 12/23/18 23:21 56 L 14 132/60 12/23/18 23:11 60 19 123/64 12/23/18 23:00 59 L 17 123/64 12/23/18 22:51 88 28 H 129/66 12/23/18 22:45 61 17 129/66 12/23/18 22:41 56 L 19 129/66 12/23/18 22:31 55 L 16 157/76 12/23/18 22:20 60 19 129/66 12/23/18 22:11 58 L 19 150/69 12/23/18 22:00 61 17 129/66 12/23/18 21:51 59 L 16 150/69 12/23/18 21:41 62 17 141/63 12/23/18 21:31 62 17 141/63 12/23/18 21:21 61 13 124/60 12/23/18 21:11 59 L 18 127/63 12/23/18 21:01 76 22 127/63 12/23/18 20:51 60 13 127/63 12/23/18 20:41 59 L 10 L 106/64 12/23/18 20:30 64 16 118/66 12/23/18 20:21 59 L 19 116/71 12/23/18 20:10 68 17 114/31 12/23/18 20:00 99.7 F H 61 14 106/64 12/23/18 19:51 62 11 L 114/61 12/23/18 19:41 73 15 114/31 12/23/18 19:30 75 14 116/52 12/23/18 19:21 66 13 114/31 12/23/18 19:11 69 19 114/31 12/23/18 19:01 76 16 110/34 12/23/18 18:51 61 13 110/34 12/23/18 18:41 66 20 12/23/18 18:31 67 21 141/70 12/23/18 18:20 79 24 141/70 12/23/18 18:11 77 24 127/58 12/23/18 18:00 79 20 127/58 12/23/18 17:51 86 15 143/58 12/23/18 17:41 94 H 19 133/56 12/23/18 17:31 78 17 123/79 12/23/18 17:21 63 20 127/64 12/23/18 17:11 82 25 H 106/54 12/23/18 17:01 68 15 133/56 12/23/18 16:51 75 16 133/63 12/23/18 16:41 78 15 121/64 12/23/18 16:30 77 19 106/54 12/23/18 16:21 77 20 113/60 12/23/18 16:11 75 18 121/64 12/23/18 16:00 97.6 F 66 68 58 L 68 18 123/60 12/23/18 15:51 67 20 123/60 12/23/18 15:41 58 L 16 118/59 12/23/18 15:30 56 L 20 118/59 12/23/18 15:21 64 20 117/63 12/23/18 15:11 64 19 126/56 12/23/18 15:01 57 L 15 126/56 12/23/18 14:51 64 18 112/48 12/23/18 14:41 71 18 112/48 12/23/18 14:30 69 20 112/48 12/23/18 14:21 65 18 110/43 12/23/18 14:11 67 19 110/53 12/23/18 14:00 81 17 110/53 12/23/18 13:51 69 19 113/51 12/23/18 13:40 66 19 12/23/18 13:30 71 21 112/55 12/23/18 13:20 61 19 112/55 12/23/18 13:10 65 19 120/96 12/23/18 13:00 80 22 136/119 12/23/18 12:50 66 18 134/65 03/20/19 12:40 72 16 134/65 12/23/18 12:30 73 16 120/96 12/23/18 12:20 66 19 126/76 12/23/18 12:10 67 20 134/65 12/23/18 12:00 97.2 F L 68 68 58 L 68 20 134/65 12/23/18 11:50 69 12 120/72 12/23/18 11:40 78 19 111/69 12/23/18 11:30 71 20 111/69 12/23/18 11:20 77 20 111/69 12/23/18 11:10 65 17 111/69 12/23/18 11:00 61 17 111/69 12/23/18 10:50 56 L 15 112/61 12/23/18 10:40 66 23 112/61 Pulse Ox 12/24/18 09:51 100 12/24/18 09:41 100 12/24/18 09:31 100 12/24/18 09:21 100 12/24/18 09:11 100 12/24/18 09:01 100 12/24/18 08:51 100 12/24/18 08:41 100 12/24/18 08:31 100 12/24/18 08:21 100 12/24/18 08:11 78 L 12/24/18 08:01 100 12/24/18 08:00 100 12/24/18 07:51 100 12/24/18 07:41 100 12/24/18 07:30 97 12/24/18 07:21 99 12/24/18 07:11 100 12/24/18 07:00 99 12/24/18 06:51 100 12/24/18 06:41 100 12/24/18 06:30 99 12/24/18 06:21 100 12/24/18 06:11 98 12/24/18 06:01 100 12/24/18 05:51 100 12/24/18 05:41 96 12/24/18 05:31 100 12/24/18 05:21 99 12/24/18 05:11 100 12/24/18 05:00 97 12/24/18 04:50 97 12/24/18 04:41 97 12/24/18 04:31 98 03/21/19 04:21 97 12/24/18 04:11 98 12/24/18 04:00 98 12/24/18 03:51 98 12/24/18 03:41 100 12/24/18 03:31 100 12/24/18 03:21 100 12/24/18 03:11 100 12/24/18 03:01 94 12/24/18 02:51 98 12/24/18 02:41 99 12/24/18 02:31 98 12/24/18 02:21 99 12/24/18 02:11 97 12/24/18 02:00 97 12/24/18 01:51 97 12/24/18 01:41 98 12/24/18 01:31 98 12/24/18 01:20 98 12/24/18 01:11 96 12/24/18 01:00 98 12/24/18 00:51 98 12/24/18 00:41 98 12/24/18 00:30 97 12/24/18 00:21 97 12/24/18 00:11 98 12/24/18 00:00 99 12/23/18 23:51 100 12/23/18 23:41 100 12/23/18 23:30 99 12/23/18 23:21 98 12/23/18 23:11 100 12/23/18 23:00 99 12/23/18 22:51 96 12/23/18 22:45 100 12/23/18 22:41 99 12/23/18 22:31 99 12/23/18 22:20 99 12/23/18 22:11 100 12/23/18 22:00 98 12/23/18 21:51 100 12/23/18 21:41 99 12/23/18 21:31 100 12/23/18 21:21 98 12/23/18 21:11 100 12/23/18 21:01 100 12/23/18 20:51 100 12/23/18 20:41 100 12/23/18 20:30 99 03 20:21 99 12/23/18 20:10 100 12/23/18 20:00 100 03 19:51 100 12/23/18 19:41 100 12/23/18 19:30 100 12/23/18 19:21 100 12/23/18 19:11 99 03/20/19 19:01 100 12/23/18 18:51 100 12/23/18 18:41 100 12/23/18 18:31 100 12/23/18 18:20 99 12/23/18 18:11 100 12/23/18 18:00 100 12/23/18 17:51 100 12/23/18 17:41 100 12/23/18 17:31 97 12/23/18 17:21 100 12/23/18 17:11 100 12/23/18 17:01 100 12/23/18 16:51 100 12/23/18 16:41 100 12/23/18 16:30 95 12/23/18 16:21 95 12/23/18 16:11 96 12/23/18 16:00 97 12/23/18 15:51 98 12/23/18 15:41 98 12/23/18 15:30 99 12/23/18 15:21 98 12/23/18 15:11 99 12/23/18 15:01 100 12/23/18 14:51 100 12/23/18 14:41 96 12/23/18 14:30 97 12/23/18 14:21 97 12/23/18 14:11 97 12/23/18 14:00 100 12/23/18 13:51 97 12/23/18 13:40 98 12/23/18 13:30 98 12/23/18 13:20 100 12/23/18 13:10 100 12/23/18 13:00 97 12/23/18 12:50 100 12/23/18 12:40 97 12/23/18 12:30 93 12/23/18 12:20 99 12/23/18 12:10 100 12/23/18 12:00 100 12/23/18 11:50 100 12/23/18 11:40 100 12/23/18 11:30 95 12/23/18 11:20 100 12/23/18 11:10 100 12/23/18 11:00 100 12/23/18 10:50 100 12/23/18 10:40 100 Intake and Output 12/23/18 12/24/18 12/24/18 22:59 06:59 14:59 Intake Total 6997.754 9294.75 240 Balance 9091.916 4607.75 240 Intake: IV 2699.237 5036.75 CLEOCIN 600 MG/50 mL 600 100 mg In 50 ml @ 100 mls/hr IV Q8HR [facility] Rx#:[id number] Lactated Ringers 1,000 ml 416.761 8928.75 @ 125 mls/hr IV DIRECT [facility] Rx#:[id number] Oral 300 240 Other: Total, Intake Amount 300 240 Voiding Method Toilet Toilet Toilet # Voids Void 1 - Exam Breasts: Present: deferred Cardiovascular: Present: Regular rate Abdomen: Present: normal appearance, soft - Labs Labs: Abnormal lab results 12/23/18 12/23/18 12/24/18 Range/Units 13:56 13:56 05:17 WBC 14.0 H 12.5 H (4.5-11.0) K/mm3 RBC 3.09 L 3.09 L (3.65-5.03) M/mm3 Hgb 7.4 L 7.3 L (10.1-14.3) gm/dl Hct 22.6 L 22.8 L (30.3-42.9) % MCV 73 L 74 L (79-97) fl MCH 24 L 24 L (28-32) pg RDW 35.9 H 36.0 H (13.2-15.2) % Plt Count 34 L 60 L (140-440) K/mm3 Seg Neuts % (Manual) 85.0 H 77.0 H (40.0-70.0) % Lymphocytes % (Manual) 11.0 L (13.4-35.0) % Seg Neutrophils # Man 11.9 H 9.6 H (1.8-7.7) K/mm3 Chloride 107.4 H (98-107) mmol/L Carbon Dioxide (22-30) mmol/L BUN 5 L (7-17) mg/dL Glucose 113 H (65-100) mg/dL Iron (37-170) ug/dL Ferritin (13.0-400.0) ng/mL 12/24/18 12/24/18 Range/Units 05:17 05:17 WBC (4.5-11.0) K/mm3 RBC (3.65-5.03) M/mm3 Hgb (10.1-14.3) gm/dl Hct (30.3-42.9) % MCV (79-97) fl MCH (28-32) pg RDW (13.2-15.2) % Plt Count (140-440) K/mm3 Seg Neuts % (Manual) (40.0-70.0) % Lymphocytes % (Manual) (13.4-35.0) % Seg Neutrophils # Man (1.8-7.7) K/mm3 Chloride (98-107) mmol/L Carbon Dioxide 21 L (22-30) mmol/L BUN 4 L (7-17) mg/dL Glucose (65-100) mg/dL Iron 18 L (37-170) ug/dL Ferritin 11.8 L (13.0-400.0) ng/mL
--- NOTE | 2018-12-24 17:51 | XRay Report ---
PROCEDURE: XR CHEST ROUTINE 2V TECHNIQUE: Chest 2 views HISTORY: productive cough COMPARISONS: FINDINGS: The cardiac and mediastinal contours are unremarkable. No focal pulmonary infiltrate identified. No p leural fluid collection seen IMPRESSION: No acute abnormality identified in the chest. This document is electronically signed by Krishna Parks MD., December 24 2018 05:48:51 PM ET
[2018-12-25 05:15] VITALS: BP 138/59
[2018-12-25] MEDS: CLEOCIN 600 MG/50 mL 600 MG/50 ML BAG IV SCH (05:15)
[2018-12-25 05:55] LABS: Hematocrit 24.1 % (30.3-42.9); Hemoglobin 7.6 gm/dl (10.1-14.3); Mean Corpuscular HGB Conc 32 % (30-34); Mean Corpuscular Volume 75 fl (79-97); Red Blood Count 3.21 M/mm3 (3.65-5.03)
[2018-12-25 06:27] LABS: Red Cell Distribution Width 36.9 % (13.2-15.2)
--- NOTE | 2018-12-25 07:33 | Hem/Onc Progress Note ---
Assessment and Plan 1. Anemia secondary to menorrhagia. 2. Iron deficiency. 3. Blood transfusion given. 4. Low platelet. The question arises if the significant drop of platelets is secondary to consumption or other etiology. Platelet count was normal in 02/2018, we will watch the trend. B12 and folate levels were normal. 5. Ultrasound shows fibroids. We will get a smear evaluation and I will follow the patient. iron support for now. 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 - path review ordered - Patient Problems (1) Thrombocytopenia Status: Acute Subjective Date of service: 12/25/18 Principal diagnosis: low plt - anemia Interval history: seen by truss puller helper - s/p iv iron Objective - Constitutional Vitals: Last Vital Signs Temp 99 F 12/25/18 04:00 Pulse 50 L 12/25/18 05:11 Resp 13 12/25/18 05:00 BP 138/59 12/25/18 05:11 Pulse Ox 100 12/25/18 05:11 Pain Intensity (0-10): denies any pain General appearance: no acute distress Performance status: 3-limited selfcare - EENT Eyes: EOM intact ENT: clear oral mucosa Lymph node exam: negative cervical - Neck Neck: normal ROM - Respiratory Respiratory effort: Positive: normal Respiratory: bilateral: CTA - Cardiovascular Heart Sounds: Present: S1 & S2 Extremities: No edema - Gastrointestinal General gastrointestinal: Present: soft, non-tender Rectal Exam: deferred - Genitourinary Female genitourinary: Present: deferred - Integumentary Integumentary: warm - Musculoskeletal Musculoskeletal: strength equal bilaterally - Neurologic Neurologic: moves all extremities - Psychiatric Psychiatric: appropriate mood/affect - Labs Lab Results: Laboratory Results - last 24 hr 12/24/18 12/25/18 05:17 05:38 WBC 12.5 H 12.7 H RBC 3.09 L 3.21 L Hgb 7.3 L 7.6 L Hct 22.8 L 24.1 L MCV 74 L 75 L MCH 24 L 24 L MCHC 32 32 RDW 36.0 H 36.9 H Plt Count 60 L Add Manual Diff Complete Total Counted 100 Seg Neuts % (Manual) 77.0 H Band Neutrophils % 3.0 Lymphocytes % (Manual) 17.0 Reactive Lymphs % (Man) 0 Monocytes % (Manual) 0 Eosinophils % (Manual) 3.0 Basophils % (Manual) 0 Metamyelocytes % 0 Myelocytes % 0 Promyelocytes % 0 Blast Cells % 0 Nucleated RBC % Not Reportable Seg Neutrophils # Man 9.6 H Band Neutrophils # 0.4 Lymphocytes # (Manual) 2.1 Abs React Lymphs (Man) 0.0 Monocytes # (Manual) 0.0 Eosinophils # (Manual) 0.4 Basophils # (Manual) 0.0 Metamyelocytes # 0.0 Myelocytes # 0.0 Promyelocytes # 0.0 Blast Cells # 0.0 Pathologist Review WBC Morphology Not Reportable Hypersegmented Neuts Not Reportable Hyposegmented Neuts Not Reportable Hypogranular Neuts Not Reportable Smudge Cells Not Reportable Toxic Granulation Not Reportable Toxic Vacuolation Not Reportable Dohle Bodies Not Reportable Pelger-Huet Anomaly Not Reportable Tu Rods Not Reportable Platelet Estimate Consistent w auto Clumped Platelets Not Reportable Plt Clumps, EDTA Not Reportable Large Platelets Not Reportable Giant Platelets Not Reportable Platelet Satelliting Not Reportable Plt Morphology Comment Not Reportable RBC Morphology Not Reportable Dimorphic RBCs Not Reportable Polychromasia 1+ Hypochromasia 1+ Poikilocytosis Not Reportable Anisocytosis 2+ Microcytosis Not Reportable Macrocytosis Not Reportable Spherocytes Not Reportable Pappenheimer Bodies Not Reportable Sickle Cells Not Reportable Target Cells Not Reportable Tear Drop Cells Few Ovalocytes 1+ Stomatocytes Few Helmet Cells Not Reportable Donnelly-Sanctuary Bodies Not Reportable [place] Rings Not Reportable Gabrielle Cells Not Reportable Bite Cells Not Reportable Crenated Cell Not Reportable Elliptocytes Not Reportable Acanthocytes (Spur) Not Reportable Rouleaux Not Reportable Hemoglobin C Crystals Not Reportable Schistocytes Not Reportable Malaria parasites Not Reportable Jordi Bodies Not Reportable Hem Pathologist Commnt Sent to pathology Medications & Allergies - Medications Allergies/Adverse Reactions: Allergies acetaminophen [From Percocet] Allergy (Verified 12/22/18 12:32) Itching oxycodone [From Percocet] Allergy (Verified 12/22/18 12:32) Itching Penicillins Allergy (Verified 02/16/18 08:46) Hives Home Medications: Home Medications Medication Instructions Recorded Confirmed Last Taken Type Azithromycin [Zithromax TAB] 500 mg PO QDAY #5 tablet 12/25/18 Unknown Rx Ferrous Sulfate [Feosol 325 MG tab] 325 mg PO BID #60 tablet 12/25/18 Unknown Rx medroxyPROGESTERone ACETATE 10 mg PO QDAY #10 tablet 12/25/18 Unknown Rx [Provera] Active Medications: Generic Name Dose Route Start Last Admin Trade Name Freq PRN Reason Stop Dose Admin Docusate Sodium 100 mg 12/22/18 20:37 Colace PO Q12H PRN Constipation Sodium Chloride 1,000 mls @ 100 mls/hr 12/22/18 16:00 Nacl 0.45% IV DIRECT KLAUS Clindamycin HCl 600 mg in 50 mls @ 100 mls/hr 12/22/18 22:00 12/25/18 05:15 Cleocin 600 Mg/50 Ml IV 100 mls/hr Q8HR KLAUS Administration Protocol Lactated Ringer's 1,000 mls @ 125 mls/hr 12/22/18 21:00 12/24/18 22:18 Lactated Ringers IV 125 mls/hr DIRECT KLAUS Administration Medroxyprogesterone Acetate 10 mg 12/22/18 21:00 12/24/18 09:13 Provera PO 10 mg QDAY KLAUS Administration Multivitamins/Iron/Calcium 1 each 12/23/18 10:00 12/24/18 09:13 Vitamin PO 1 each QDAY KLAUS Administration Ondansetron HCl 4 mg 12/22/18 20:37 Zofran IV Q6H PRN Nausea And Vomiting
[2018-12-25] MEDS: PRENATAL VITAMIN PO SCH (09:27)
--- NOTE | 2018-12-25 10:03 | Progress Note ---
Assessment and Plan - Patient Problems (1) Uterine fibroid Onset Date: 12/22/18 Current Visit: Yes Status: Chronic Qualifiers: Uterine leiomyoma location: intramural Qualified Code(s): D25.1 - In tramural leiomyoma of uterus (2) Symptomatic anemia Onset Date: 12/22/18 Current Visit: Yes Status: Resolved Plan to address problem: A: Symptomatic anemia - most likely due to Menorrhagia Menorrhagia - most likely due to uterine fibroids Thrombocytopenia - improved. P: May go home today Will need a Pap and endometrial biopsy in the office next week Follow up with Heme/Onc next week (3) Thrombocytopenia Onset Date: 12/22/18 Current Visit: Yes Status: Resolved Subjective - Subjective Date of service: 12/25/18 Principal diagnosis: Uterine fibroids; Menorrhagia; Anemia; Thrombocytopenia Interval history: Pt is feeling well without complaints. Bleeding is minimal. Patient reports: appetite normal, voiding normally, pain well controlled, flatus, no nauseated Objective - Vital Signs Latest vital signs: Vital Signs Temp Pulse Pulse Resp BP Pulse Ox 12/25/18 07:56 55 L 100 12/25/18 05:11 50 L 138/59 100 12/25/18 05:00 50 L 13 138/59 100 12/25/18 04:51 53 L 13 128/61 99 12/25/18 04:41 79 128/61 91 12/25/18 04:31 53 L 128/61 97 12/25/18 04:21 53 L 128/61 96 12/25/18 04:11 52 L 128/61 97 12/25/18 04:00 99 F 52 L 59 L 16 128/61 99 12/25/18 03:51 50 L 18 109/52 99 12/25/18 03:41 51 L 15 109/52 97 12/25/18 03:31 48 L 15 109/52 98 12/25/18 03:21 53 L 18 109/52 96 12/25/18 03:11 53 L 17 109/52 99 12/25/18 03:00 56 L 19 109/52 96 12/25/18 02:51 55 L 18 119/61 96 12/25/18 02:41 55 L 18 119/61 96 12/25/18 02:31 119/61 95 12/25/18 02:21 58 L 119/61 96 12/25/18 02:11 58 L 119/61 94 12/25/18 02:00 56 L 116/63 98 12/25/18 01:51 59 L 116/63 95 12/25/18 01:41 57 L 116/63 97 12/25/18 01:31 57 L 116/63 98 12/25/18 01:21 116/63 100 12/25/18 01:11 62 10 L 116/63 99 12/25/18 01:00 54 L 16 116/63 98 12/25/18 00:51 54 L 10 L 132/69 97 12/25/18 00:41 58 L 19 132/69 97 12/25/18 00:31 58 L 19 132/69 97 12/25/18 00:21 59 L 11 L 132/69 97 12/25/18 00:11 57 L 19 132/69 97 12/25/18 00:00 99.2 F 56 L 54 L 18 132/69 98 12/24/18 23:51 63 18 116/64 98 12/24/18 23:41 58 L 18 116/64 99 12/24/18 23:31 60 11 L 116/64 100 12/24/18 23:21 59 L 12 110/68 98 12/24/18 23:11 57 L 15 116/59 99 12/24/18 23:01 57 L 16 116/59 99 12/24/18 22:51 60 15 127/69 98 12/24/18 22:41 61 20 120/62 100 12/24/18 22:30 62 14 120/62 99 12/24/18 22:21 61 17 127/69 100 12/24/18 22:11 60 20 133/83 100 12/24/18 22:01 60 14 133/83 100 12/24/18 22:00 57 L 12/24/18 21:51 59 L 19 133/83 100 12/24/18 21:49 61 18 133/83 90 12/24/18 21:41 66 25 H 132/72 95 12/24/18 21:30 68 13 132/72 96 12/24/18 21:21 65 21 128/67 93 12/24/18 21:11 76 18 133/64 99 12/24/18 21:01 69 17 133/64 85 03/21/19 20:51 68 12 140/75 99 12/24/18 20:41 63 17 115/66 100 12/24/18 20:30 68 23 115/66 100 12/24/18 20:21 62 17 137/79 100 12/24/18 20:10 62 13 134/77 100 12/24/18 20:00 100 F H 63 52 L 18 134/77 98 12/24/18 19:51 66 12 133/70 99 12/24/18 19:41 65 18 128/67 100 12/24/18 19:30 66 15 122/69 100 12/24/18 19:21 65 16 128/67 100 12/24/18 19:11 66 18 126/67 100 12/24/18 19:01 67 16 114/50 100 12/24/18 18:51 72 22 126/67 86 12/24/18 18:41 65 15 126/69 100 12/24/18 18:30 64 19 126/69 100 12/24/18 18:21 64 16 146/127 98 12/24/18 18:11 64 17 146/127 100 12/24/18 18:00 65 15 146/127 100 12/24/18 17:50 62 19 146/127 100 12/24/18 17:40 69 22 92 12/24/18 17:30 68 14 132/78 100 12/24/18 17:21 67 19 128/74 100 12/24/18 17:11 69 21 142/60 84 12/24/18 17:03 77 20 142/60 88 12/24/18 16:31 72 23 129/96 84 12/24/18 16:21 64 22 129/96 100 12/24/18 16:11 72 20 129/96 100 12/24/18 16:01 64 15 129/96 100 12/24/18 16:00 99.7 F H 57 L 16 100 12/24/18 15:51 62 24 129/96 100 12/24/18 15:41 62 18 129/96 100 12/24/18 15:31 70 20 129/96 98 12/24/18 15:21 66 19 129/96 96 12/24/18 15:11 65 16 129/96 99 12/24/18 15:01 65 17 129/96 99 12/24/18 14:51 67 19 129/96 97 12/24/18 14:41 67 17 129/96 99 12/24/18 14:31 67 19 129/96 100 12/24/18 14:21 69 18 129/96 100 12/24/18 14:11 70 21 129/96 100 12/24/18 14:01 80 20 129/96 99 12/24/18 13:51 78 19 129/96 100 12/24/18 13:41 68 17 129/96 100 12/24/18 13:31 66 22 129/96 100 12/24/18 13:21 68 21 129/96 100 12/24/18 13:11 80 25 H 129/96 95 12/24/18 13:00 71 15 129/96 100 12/24/18 12:51 69 17 139/87 99 12/24/18 12:41 72 13 136/72 100 12/24/18 12:31 72 16 136/72 100 12/24/18 12:20 71 17 132/53 94 12/24/18 12:11 71 11 L 132/53 100 12/24/18 12:01 67 13 132/53 100 12/24/18 12:00 98.9 F 57 L 16 100 12/24/18 11:51 64 14 151/81 100 12/24/18 11:41 68 18 119/61 99 12/24/18 11:30 72 13 119/61 100 12/24/18 11:21 64 19 172/68 99 12/24/18 11:11 61 11 L 119/65 99 12/24/18 11:00 63 11 L 117/69 100 12/24/18 10:51 62 18 117/69 100 12/24/18 10:41 80 22 127/55 98 12/24/18 10:31 62 17 127/55 100 12/24/18 10:21 94 H 24 110/60 100 12/24/18 10:11 67 16 120/57 100 Intake and Output 12/24/18 12/25/18 12/25/18 22:59 06:59 14:59 Intake Total 1790 Output Total 450 Balance 1340 Intake: IV 1050 CLEOCIN 600 MG/50 mL 600 50 mg In 50 ml @ 100 mls/hr IV Q8HR KLAUS Rx#:[id number] Lactated Ringers 1,000 ml 1000 @ 125 mls/hr IV DIRECT KLAUS Rx#:[id number] Oral 740 Output: Urine 450 Void 450 Other: Total, Intake Amount 500 Total, Output Amount 450 Voiding Method Toilet Toilet Toilet # Voids Void 1 - Exam Abdomen: Present: normal appearance, soft Extremities: Present: normal - Labs Labs: Abnormal lab results 12/25/18 Range/Units 05:38 WBC 12.7 H (4.5-11.0) K/mm3 RBC 3.21 L (3.65-5.03) M/mm3 Hgb 7.6 L (10.1-14.3) gm/dl Hct 24.1 L (30.3-42.9) % MCV 75 L (79-97) fl MCH 24 L (28-32) pg RDW 36.9 H (13.2-15.2) % Laboratory Results - last 24 hr 12/24/18 12/25/18 05:17 05:38 WBC 12.7 H RBC 3.21 L Hgb 7.6 L Hct 24.1 L MCV 75 L MCH 24 L MCHC 32 RDW 36.9 H Plt Count 127 L D Add Manual Diff Complete Total Counted 100 Seg Neuts % (Manual) 75.0 H Band Neutrophils % 0 Lymphocytes % (Manual) 13.0 L Reactive Lymphs % (Man) 1.0 Monocytes % (Manual) 4.0 Eosinophils % (Manual) 5.0 H Basophils % (Manual) 2.0 H Metamyelocytes % 0 Myelocytes % 0 Promyelocytes % 0 Blast Cells % 0 Nucleated RBC % 2.0 H Seg Neutrophils # Man 9.5 H Band Neutrophils # 0.0 Lymphocytes # (Manual) 1.7 Abs React Lymphs (Man) 0.1 Monocytes # (Manual) 0.5 Eosinophils # (Manual) 0.6 H Basophils # (Manual) 0.3 H Metamyelocytes # 0.0 Myelocytes # 0.0 Promyelocytes # 0.0 Blast Cells # 0.0 Pathologist Review WBC Morphology Not Reportable Hypersegmented Neuts Not Reportable Hyposegmented Neuts Not Reportable Hypogranular Neuts Not Reportable Smudge Cells Not Reportable Toxic Granulation Not Reportable Toxic Vacuolation Not Reportable Dohle Bodies Not Reportable Pelger-Huet Anomaly Not Reportable Tu Rods Not Reportable Platelet Estimate Consistent w auto Clumped Platelets Not Reportable Plt Clumps, EDTA Not Reportable Large Platelets Not Reportable Giant Platelets Few Platelet Satelliting Not Reportable Plt Morphology Comment Not Reportable RBC Morphology Not Reportable Dimorphic RBCs Not Reportable Polychromasia Few Hypochromasia 1+ Poikilocytosis Not Reportable Anisocytosis 3+ Microcytosis Not Reportable Macrocytosis Not Reportable Spherocytes Not Reportable Pappenheimer Bodies Not Reportable Sickle Cells Not Reportable Target Cells Not Reportable Tear Drop Cells Not Reportable Ovalocytes Not Reportable Helmet Cells Not Reportable Donnelly-[place] Bodies Not Reportable [place] Rings Not Reportable [place] Cells Not Reportable Bite Cells Not Reportable Crenated Cell Not Reportable Elliptocytes Not Reportable Acanthocytes (Spur) Not Reportable Rouleaux Not Reportable Hemoglobin C Crystals Not Reportable Schistocytes Not Reportable Malaria parasites Not Reportable Jordi Bodies Not Reportable Hem Pathologist Commnt No Microbiology 12/24/18 09:31 Peripheral/Venous Blood Culture - Preliminary NO GROWTH AFTER 24 HOURS 12/24/18 08:47 Peripheral/Venous Blood Culture - Preliminary NO GROWTH AFTER 24 HOURS 12/24/18 Unknown Urine,Clean Catch Urine Culture - Preliminary
[2018-12-25 10:22] LABS: Anisocytosis 3+; Giant Platelets Few; Hypochromasia 1+; Total Cells Counted 100
[2018-12-25 10:23] LABS: Platelet Estimate Consistent w Auto
[2018-12-25 10:43] LABS: Platelet Count 127 K/mm3 (140-440)
--- NOTE | 2018-12-25 11:10 | Progress Note ---
Assessment and Plan Leukocytosis, w/o clear source of infection - likely reactive, patient afebrile - cannot r/o acute bronchitis - started on abx empirically but no Cx was obtained before starting abx - obtained blood, urine cx on 12/24 - pending, CXR x2 no infiltrates - cont to treat for bronchitis with zithromax, stop clindamycin Severe anemia, due to menorrhagia - Hb was 4.0 on admission - s/p PRBC transfusion, h/H now stable Iron defficiency, given IV iron Metabolic acidosis, likely from dehydration, resolved with fluid Thrombocytopenia, improving, hematology consulted by primary Disposition: medically stable, if Cx negative further workup could be done as outpt - d/c planning will defer to primary Brief History: 43 YO Female with Menorrhagia, Anemia presented to ED for evaluation. Pt seen and evaluated in ED and found to have Symptomatic Anemia, transfused 3 units of PRBC. Hospitalist Consulted for medical management. Pt found to have SIRS and Acidosis. Pt denies fever, chills, CP, Palpitations, NVD, Trauma, Skin Rash, BRBPR. Pt initiated on empiric IV antibiotic therapy and iv fluid. Subjective Date of service: 12/25/18 Principal diagnosis: low plt - anemia Interval history: Patient seen and examined feeling better, not having heavy period Objective - Exam Narrative Exam: General appearance: Present: no acute distress, well-nourished - EENT Eyes: PERRL, EOM intact ENT: hearing intact, clear oral mucosa Ears: bilateral: normal - Neck Neck: supple, normal ROM - Respiratory Respiratory effort: normal Respiratory: bilateral: CTA - Cardiovascular Rhythm: regular Heart Sounds: Present: S1 & S2. Absent: gallop, rub Extremities: pulses intact, No edema, normal color, Full ROM - Gastrointestinal General gastrointestinal: Present: soft, non-tender, non-distended, normal bowel sounds - Integumentary Integumentary: clear, warm, dry - Musculoskeletal Musculoskeletal: 1, strength equal bilaterally - Neurologic Neurologic: moves all extremities - Psychiatric Psychiatric: memory intact, appropriate mood/affect, intact judgment & insight - Constitutional Vitals: Vital Signs - 12hr 12/24/18 12/24/18 12/24/18 23:11 23:21 23:31 Temperature Pulse Rate 57 L 59 L 60 Pulse Rate [ From Monitor] Respiratory 15 12 11 L Rate Blood Pressure 116/59 110/68 116/64 O2 Sat by Pulse 99 98 100 Oximetry 12/24/18 12/24/18 12/25/18 23:41 23:51 00:00 Temperature 99.2 F Pulse Rate 58 L 63 56 L Pulse Rate [ 54 L From Monitor] Respiratory 18 18 18 Rate Blood Pressure 116/64 116/64 132/69 O2 Sat by Pulse 99 98 98 Oximetry 12/25/18 12/25/18 12/25/18 00:11 00:21 00:31 Temperature Pulse Rate 57 L 59 L 58 L Pulse Rate [ From Monitor] Respiratory 19 11 L 19 Rate Blood Pressure 132/69 132/69 132/69 O2 Sat by Pulse 97 97 97 Oximetry 12/25/18 12/25/18 12/25/18 00:41 00:51 01:00 Temperature Pulse Rate 58 L 54 L 54 L Pulse Rate [ From Monitor] Respiratory 19 10 L 16 Rate Blood Pressure 132/69 132/69 116/63 O2 Sat by Pulse 97 97 98 Oximetry 12/25/18 12/25/18 12/25/18 01:11 01:21 01:31 Temperature Pulse Rate 62 57 L Pulse Rate [ From Monitor] Respiratory 10 L Rate Blood Pressure 116/63 116/63 116/63 O2 Sat by Pulse 99 100 98 Oximetry 12/25/18 12/25/18 12/25/18 01:41 01:51 02:00 Temperature Pulse Rate 57 L 59 L 56 L Pulse Rate [ From Monitor] Respiratory Rate Blood Pressure 116/63 116/63 116/63 O2 Sat by Pulse 97 95 98 Oximetry 12/25/18 12/25/18 12/25/18 02:11 02:21 02:31 Temperature Pulse Rate 58 L 58 L Pulse Rate [ From Monitor] Respiratory Rate Blood Pressure 119/61 119/61 119/61 O2 Sat by Pulse 94 96 95 Oximetry 12/25/18 12/25/18 12/25/18 02:41 02:51 03:00 Temperature Pulse Rate 55 L 55 L 56 L Pulse Rate [ From Monitor] Respiratory 18 18 19 Rate Blood Pressure 119/61 119/61 109/52 O2 Sat by Pulse 96 96 96 Oximetry 12/25/18 12/25/18 12/25/18 03:11 03:21 03:31 Temperature Pulse Rate 53 L 53 L 48 L Pulse Rate [ From Monitor] Respiratory 17 18 15 Rate Blood Pressure 109/52 109/52 109/52 O2 Sat by Pulse 99 96 98 Oximetry 12/25/18 12/25/18 12/25/18 03:41 03:51 04:00 Temperature 99 F Pulse Rate 51 L 50 L 52 L Pulse Rate [ 59 L From Monitor] Respiratory 15 18 16 Rate Blood Pressure 109/52 109/52 128/61 O2 Sat by Pulse 97 99 99 Oximetry 12/25/18 12/25/18 12/25/18 04:11 04:21 04:31 Temperature Pulse Rate 52 L 53 L 53 L Pulse Rate [ From Monitor] Respiratory Rate Blood Pressure 128/61 128/61 128/61 O2 Sat by Pulse 97 96 97 Oximetry 12/25/18 12/25/18 12/25/18 04:41 04:51 05:00 Temperature Pulse Rate 79 53 L 50 L Pulse Rate [ From Monitor] Respiratory 13 13 Rate Blood Pressure 128/61 128/61 138/59 O2 Sat by Pulse 91 99 100 Oximetry 12/25/18 12/25/18 05:11 07:56 Temperature Pulse Rate 50 L Pulse Rate [ 55 L From Monitor] Respiratory Rate Blood Pressure 138/59 O2 Sat by Pulse 100 100 Oximetry - Labs CBC & Chem 7: 12/25/18 05:38 12/24/18 05:17 Labs: Abnormal lab results 12/25/18 Range/Units 05:38 WBC 12.7 H (4.5-11.0) K/mm3 RBC 3.21 L (3.65-5.03) M/mm3 Hgb 7.6 L (10.1-14.3) gm/dl Hct 24.1 L (30.3-42.9) % MCV 75 L (79-97) fl MCH 24 L (28-32) pg RDW 36.9 H (13.2-15.2) % Plt Count 127 L D (140-440) K/mm3 Seg Neuts % (Manual) 75.0 H (40.0-70.0) % Lymphocytes % (Manual) 13.0 L (13.4-35.0) % Eosinophils % (Manual) 5.0 H (0.0-4.3) % Basophils % (Manual) 2.0 H (0.0-1.8) % Nucleated RBC % 2.0 H (0.0-0.9) % Seg Neutrophils # Man 9.5 H (1.8-7.7) K/mm3 Eosinophils # (Manual) 0.6 H (0.0-0.4) K/mm3 Basophils # (Manual) 0.3 H (0.0-0.1) K/mm3
[2018-12-25] MEDS ORDERED: MUCINEX ER PO SCH (12:00)
[2018-12-25] MEDS ORDERED: ZITHROMAX PO SCH (12:00)
--- NOTE | 2018-12-25 14:32 | Discharge Summary ---
Providers - Providers Date of Admission: 12/22/18 14:51 Date of discharge: 12/25/18 Attending physician: RENATO SCOTT 12/22/18 14:51 Consult to Physician [CONS] Urgent Comment: Consulting Provider: BETTE ALANIS Physician Instructions: Reason For Exam: profound anemia, thrombocytopenia pending 12/23/18 18:33 Consult to Physician [CONS] Routine Comment: Consulting Provider: GAVIOTA SALEH Physician Instructions: Reason For Exam: thrombocytopenia [facility] Reason for admission: other (Symptomatic anemai; Menorrhagia; Thrombocytopenia) Other procedures: none complications: none Discharge diagnosis: other (Symptomatic anemia - resolved; menorrhagia - improved; thrombocytopenia - resolved) Pertinent studies: Pelvic u/s showed an enlarged uterus with uterine fibroids. CXR was Negative. Hospital course: Pt is a 43yo BF LMP 10/22/18, then she has just been having spotting for the past several months. She was treated for a "bacterial infection" by her [employer] unified communications engineer in September (2017). She presented to [facility] ER complaining of prolonged heavy vaginal bleeding, and has passed several clots. She did note dyspnea on exertion and easy fatigability, but not complaining of abdominal pain or pelvic pain. She was admitted and received a blood transfusion raising her H/H from 4.0/14.5 up to 7.6/24.1 and platelets increased from 25k on admission up to 127k. A pelvic u/s showed she has an enlarged uterus with several fibroids and CXR was Negative. She is currently stable and will be discharged to home today with follow up with the Applications Support Lead and Integrity Engineer in 1 week. Condition at discharge: Good Disposition: DC-01 TO HOME OR SELFCARE - Discharge Diagnoses (1) Uterine fibroid Status: Chronic Qualifiers: Uterine leiomyoma location: intramural Qualified Code(s): D25.1 - Intramural leiomyoma of uterus (2) Symptomatic anemia Status: Resolved (3) Thrombocytopenia Status: Resolved Plan - Discharge Medications Prescriptions: Ferrous Sulfate [Feosol 325 MG tab] 325 mg PO BID #60 tablet medroxyPROGESTERone ACETATE [Provera] 10 mg PO QDAY #10 tablet Azithromycin [Zithromax TAB] 500 mg PO QDAY #5 tablet - Provider Discharge Summary Activity: routine, no sex for 6 weeks, no heavy lifting 4 weeks, no strenuous exercise Diet: routine Instructions: routine Additional instructions: [] Smoking cessation referral if applicable(refer to patient education folder for contact #) [] Refer to [facility]'s [facility] Booklet Call your doctor immediately for: * Fever > 100.5 * Heavy vaginal bleeding ( >1 pad per hour) * Severe persistent headache * Shortness of breath * Reddened, hot, painful area to leg or breast * Drainage or odor from incision. * Keep incision clean and dry at all times and follow doctor's instructions regarding bathing/showering - Follow up plan Follow up: HIAWATHA TIKA CASTANO MD [Primary Care Provider] - 7 Days RENATO SCOTT MD [Staff Physician] - 7 Days GAVIOTA SALEH MD [Staff Physician] - 7 Days
== END 2018-12-25 17:35 | disposition home or self-care (01) | DRG 760 ==
LOC: ED 12:25 → IMCU 14:51
PROVIDERS: ADMIT Obstetrics & Gynecology; ATTEND Obstetrics & Gynecology
PROC: 30233N1 Transfusion of Nonautologous Red Blood Cells into Peripheral Vein, Percutaneous Approach (ICD-10-PCS; principal; 2018-12-22)
DX: D25.1 Intramural leiomyoma of uterus (principal); E87.2 Acidosis; R65.10 Systemic inflammatory response syndrome (SIRS) of non-infectious origin without acute organ dysfunction; D69.6 Thrombocytopenia, unspecified; D64.9 Anemia, unspecified; D25.0 Submucous leiomyoma of uterus; D72.829 Elevated white blood cell count, unspecified; N92.0 Excessive and frequent menstruation with regular cycle; J40 Bronchitis, not specified as acute or chronic; Z88.0 Allergy status to penicillin; Z88.5 Allergy status to narcotic agent; Z79.899 Other long term (current) drug therapy; Z98.51 Tubal ligation status
CPT/HCPCS: 36415; 71045; 71046; 76830; 76856; 80048; 80076; 81001; 82607; 82728; 82747; 83550; 84703; 85007; 85025; 85610; 85730; 86850; 86900; 86901; 86920; 87040; 87086; 96374; 99291; G0378; J2916; J3370; J7030; J7040; J7120; P9016

== ENCOUNTER 2019-03-13 11:41 | Emergency (ER) | payer BC ==
[2019-03-13 11:59] LABS: Basophils # (Auto) 0.1 K/mm3 (0.0-0.1); Basophils % (Auto) 0.8 % (0.0-1.8); Eosinophils % (Auto) 0.2 % (0.0-4.3); Hematocrit 39.6 % (30.3-42.9); Hemoglobin 13.5 gm/dl (10.1-14.3); Lymphocytes # (Auto) 1.3 K/mm3 (1.2-5.4); Mean Corpuscular HGB Conc 34 % (30-34); Mean Corpuscular Volume 89 fl (79-97); Monocytes # (Auto) 0.4 K/mm3 (0.0-0.8); Monocytes % (Auto) 5.1 % (0.0-7.3); Platelet Count 227 K/mm3 (140-440); Red Blood Count 4.46 M/mm3 (3.65-5.03); Red Cell Distribution Width 14.5 % (13.2-15.2)
[2019-03-13 12:04] VITALS: BP 149/83
[2019-03-13 12:12] LABS: BUN/Creatinine Ratio 7; Blood Urea Nitrogen 7 mg/dL (7-17); Calcium 9.5 mg/dL (8.4-10.2); Hemolysis Index 18
--- NOTE | 2019-03-13 12:17 | Cat Scan Report ---
PROCEDURE: CT HEAD/BRAIN WO CON TECHNIQUE: Computerized tomography of the head was performed without contrast material. CT DOSE LENGTH PRODUCT: 805.4 mGy-cm. HISTORY: L parietal trauma COMPARISONS: None currently available. FINDINGS: There is no evidence for acute ischemia. There is no hemorrhage. There is no midline shift. There is no hydrocephalus. There is no mass. Age appropriate baires-white matter attenuation is noted. There is no calvarial fracture. The temporal bones demonstrate aerated mastoid air cells. The middle ears appear unremarkable. Paranasal sinuses are unremarkable. Globes are intact. IMPRESSION: * No acute intracranial findings. This document is electronically signed by Thomas Curtis MD., March 13 2019 12:15:24 PM ET
[2019-03-13] MEDS ORDERED: XYLOCAINE 2%/ EPI 1:200,000 INFILTRATI ONE ×2 (12:44→13:33)
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
[2019-03-13] MEDS ORDERED: BOOSTRIX IM ONE (13:59)
== END 2019-03-13 17:10 | disposition home or self-care (01) ==
LOC: EEVIPCON 11:41 → ED 11:41
DX: S01.01XA Laceration without foreign body of scalp, initial encounter (principal); Z98.51 Tubal ligation status; Z88.6 Allergy status to analgesic agent; Z88.0 Allergy status to penicillin; W22.8XXA Striking against or struck by other objects, initial encounter; Y93.89 Activity, other specified; Y92.89 Other specified places as the place of occurrence of the external cause; Y99.8 Other external cause status
CPT/HCPCS: 36415; 70450; 80048; 85025; 90471; 90715; 99284

== ENCOUNTER 2019-03-21 16:45 | Emergency (ER) | payer BC ==
[2019-03-21 17:01] VITALS: BP 136/63
--- NOTE | 2019-03-21 18:21 | Emergency Department Report ---
Suture/Staple Removal - HPI Chief Complaint: Laceration/Recheck/Suture Stated Complaint: SUTURE REMOVED Time Seen by Provider: 03/21/19 18:17 When Sutures or Lakshmi Placed: 8-10 Days Ago Wound Location: left scientologist ED Review of Systems ROS: Stated complaint: SUTURE REMOVED Other details as noted in HPI Comment: All other systems reviewed and negative ED Past Medical Hx - Past Medical History Additional medical history: anemia - Surgical History Additional Surgical History: TUBAL LIGATION - Social History Smoking Status: Never Smoker Substance Use Type: None - Medications Home Medications: Home Medications Medication Instructions Recorded Confirmed Last Taken Type Azithromycin [Zithromax TAB] 500 mg PO QDAY #5 tablet 12/25/18 Unknown Rx Ferrous Sulfate [Feosol 325 MG tab] 325 mg PO BID #60 tablet 12/25/18 Unknown Rx medroxyPROGESTERone ACETATE 10 mg PO QDAY #10 tablet 12/25/18 Unknown Rx [Provera] Suture Removal Exam - Exam General: Vital signs noted. No distress. Alert and acting appropriately. Other Systems: All other systems reviewed and are unremarkable. ED Course Vital Signs 03/21/19 16:58 Temperature 98.3 F Pulse Rate 65 Respiratory 18 Rate Blood Pressure 136/63 O2 Sat by Pulse 100 Oximetry ED Recheck MDM - Core Measures Measure Exclusions: not indicated - Medical Decision Making staple removal Critical care attestation.: If time is entered above; I have spent that time in minutes in the direct care of this critically ill patient, excluding procedure time. ED Disposition Clinical Impression: Encounter for staple removal Disposition: DC-01 TO HOME OR SELFCARE Is pt being admited?: No Does the pt Need Aspirin: No Condition: Stable Instructions: Suture Removal (ED) Forms: Work/School Release Form(ED)
== END 2019-03-21 18:35 | disposition home or self-care (01) ==
LOC: ED 16:45
DX: S01.01XD Laceration without foreign body of scalp, subsequent encounter (principal); X58.XXXD Exposure to other specified factors, subsequent encounter

== ENCOUNTER 2019-05-24 12:07 | Emergency (ER) | payer SELFPAY ==
[2019-05-24 12:30] VITALS: BP 125/80
--- NOTE | 2019-05-24 12:30 | Event Note ---
ED Screening Note Date of service: 05/24/19 Time: 12:28 ED Screening Note: 44 y/o female comes in for vaginal discharge times 1 month with lower abd pain. This initial assessment/diagnostic orders/clinical plan/treatment(s) is/are subject to change based on patients health status, clinical progression and re- assessment by fellow clinical providers in the ED. Further treatment and workup at subsequent clinical providers discretion. Patient/guardian urged not to elope from the ED as their condition may be serious if not clinically assessed and managed. Initial orders include:
[2019-05-24 13:22] LABS: HCG Qualitative,Urine Negative (Negative)
[2019-05-24 13:26] LABS: Bacteria,Urine 1+ /HPF (Negative); Bilirubin,Urine NEG (Negative); Blood,Urine NEG (Negative); Color,Urine Yellow (Yellow); Mucus,Urine 3+ /HPF; Urobilinogen,Urine < 2.0 mg/dL (<2.0)
[2019-05-24] MEDS ORDERED: ZOFRAN ODT PO ONE (14:53)
[2019-05-24] MEDS ORDERED: DIFLUCAN PO ONE (14:53)
[2019-05-24] MEDS ORDERED: FLAGYL PO ONE (14:53)
[2019-05-24] MEDS ORDERED: ZITHROMAX PO ONE (14:53)
--- NOTE | 2019-05-24 15:02 | Emergency Department Report ---
ED Female HPI - General Chief complaint: Urogenital-Female Stated complaint: BACTERIA INFECTION/YEAST Time Seen by Provider: 05/24/19 12:28 Source: patient Mode of arrival: Ambulatory Limitations: No Limitations - History of Present Illness Initial comments: Ms. Nolasco presents with vaginal discharge with a bad odor for the past several days. She is concerned for vaginitis. She is normally treated with metronidazole and fluconazole. However she wants to be checked for STD because she states that her partner was uneventful. Denies abdominal pain. Denies fever. Denies vomiting. White thick discharge. MD Complaint: vaginal discharge -: Gradual, days(s) (4) Location: labia Severity: mild Consistency: constant Improves with: none Worsens with: none Are you Now?: No Associated Symptoms: denies other symptoms, vaginal discharge - Related Data Previous Rx's Medication Instructions Recorded Last Taken Type Azithromycin [Zithromax TAB] 500 mg PO QDAY #5 tablet 12/25/18 Unknown Rx Ferrous Sulfate [Feosol 325 MG tab] 325 mg PO BID #60 tablet 12/25/18 Unknown Rx medroxyPROGESTERone ACETATE 10 mg PO QDAY #10 tablet 12/25/18 Unknown Rx [Provera] Allergies Allergy/AdvReac Type Severity Reaction Status Date / Time oxycodone [From Percocet] Allergy Itching Verified 03/21/19 17:01 Penicillins Allergy Hives Verified 03/21/19 17:01 ED Review of Systems ROS: Stated complaint: BACTERIA INFECTION/YEAST Other details as noted in HPI Constitutional: denies: fever, malaise Gastrointestinal: denies: abdominal pain, nausea, vomiting Genitourinary: discharge. denies: frequency, hematuria ED Past Medical Hx - Past Medical History Previous Medical History?: Yes Additional medical history: anemia- blood transfusion - Surgical History Past Surgical History?: Yes Additional Surgical History: TUBAL LIGATION, fibroids - Social History Smoking Status: Never Smoker Substance Use Type: None - Medications Home Medications: Home Medications Medication Instructions Recorded Confirmed Last Taken Type Azithromycin [Zithromax TAB] 500 mg PO QDAY #5 tablet 12/25/18 Unknown Rx Ferrous Sulfate [Feosol 325 MG tab] 325 mg PO BID #60 tablet 12/25/18 Unknown Rx medroxyPROGESTERone ACETATE 10 mg PO QDAY #10 tablet 03/22/19 Unknown Rx [Provera] ED Physical Exam - General Limitations: No Limitations General appearance: alert, in no apparent distress, other (steady normal gait, appears well, appears comfortable.) - Head Head exam: Present: atraumatic, normocephalic - Neck Neck exam: Present: normal inspection, full ROM - Respiratory Respiratory exam: Absent: respiratory distress - GI/Abdominal GI/Abdominal exam: Present: soft. Absent: distended, tenderness, guarding, rebound - Extremities Exam Extremities exam: Present: normal inspection, full ROM - Neurological Exam Neurological exam: Present: alert, oriented X3, normal gait - Psychiatric Psychiatric exam: Present: normal affect, normal mood - Skin Skin exam: Present: warm, dry, intact, normal color ED Course Vital Signs 05/24/19 12:28 Temperature 98.4 F Pulse Rate 69 Respiratory 18 Rate Blood Pressure 125/80 O2 Sat by Pulse 99 Oximetry ED Medical Decision Making - Medical Decision Making Clinical impression: Vaginitis Treated with metronidazole and fluconazole in emergency department Was concern for cervicitis also treated for chlamydia and gonorrhea with azithromycin. Ceftriaxone held due to penicillin allergy. Critical care attestation.: If time is entered above; I have spent that time in minutes in the direct care of this critically ill patient, excluding procedure time. ED Disposition Clinical Impression: Vaginitis, Cervicitis Disposition: DC-01 TO HOME OR SELFCARE Is pt being admited?: No Does the pt Need Aspirin: No Condition: Stable Instructions: Cervicitis (ED), Vaginitis (ED) Additional Instructions: You Have been treated for chlamydia and gonorrhea as well as yeast infection and bacterial vaginosis. Referrals: [facility] [Outside] - 3-5 Days Forms: STI Treatment and Prevention
== END 2019-05-24 15:45 | disposition home or self-care (01) ==
LOC: ED 12:07
DX: N76.0 Acute vaginitis (principal); N72 Inflammatory disease of cervix uteri; D64.9 Anemia, unspecified; Z98.51 Tubal ligation status; Z79.899 Other long term (current) drug therapy; Z88.5 Allergy status to narcotic agent; Z88.0 Allergy status to penicillin
CPT/HCPCS: 81001; 81025; Q0162

== ENCOUNTER 2019-06-23 14:20 | Emergency (ER) | payer SELFPAY ==
--- NOTE | 2019-06-23 14:26 | Emergency Department Report ---
Blank Doc - Documentation Documentation: 44-year-old female that presents with vaginal discharge. This initial assessment/diagnostic orders/clinical plan/treatment(s) is/are subject to change based on patient's health status, clinical progression and re- assessment by fellow clinical providers in the ED. Further treatment and workup at subsequent clinical providers discretion. Patient/guardians urged not to elope from the ED as their condition may be serious if not clinically assessed and managed. Initial orders include: 1- Patient sent to [facility] for further evaluation and treatment 2- pelvic exam 3- UA
[2019-06-23 14:28] VITALS: BP 117/70
[2019-06-23] MEDS ORDERED: ZOFRAN ODT PO ONE (15:45)
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
[2019-06-23] MEDS ORDERED: ZITHROMAX PO ONE (15:46)
[2019-06-23] MEDS ORDERED: FLAGYL PO ONE (15:47)
== END 2019-06-23 16:55 | disposition home or self-care (01) ==
LOC: ED 14:20
DX: N89.8 Other specified noninflammatory disorders of vagina (principal); R30.0 Dysuria; Z98.51 Tubal ligation status; Z88.0 Allergy status to penicillin; Z88.5 Allergy status to narcotic agent
CPT/HCPCS: Q0162

== ENCOUNTER 2019-07-04 11:14 | Emergency (ER) | payer SELFPAY ==
--- NOTE | 2019-07-04 11:18 | Event Note ---
ED Screening Note Date of service: 07/04/19 Time: 11:17 ED Screening Note: This is a 44 y.o. F. that presents to the ER with vaginal discharge for 1-2 weeks. Reports fishy odor with discharge. LMP 06/07/2019 Denies pelvic pain, back pain, urinary frequency, and dysuria. Patient states partner admitted to intercourse with another person and concerned of possible STD. This initial assessment/diagnostic orders/clinical plan/treatment(s) is/are subject to change based on patients health status, clinical progression and re- assessment by fellow clinical providers in the ED. Further treatment and workup at subsequent clinical providers discretion. Patient/guardian urged not to elope from the ED as their condition may be serious if not clinically assessed and managed. Initial orders include: Labs Pelvic exam
[2019-07-04 11:23] VITALS: BP 116/75
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
[2019-07-04 12:22] LABS: Bilirubin,Urine NEG (Negative); Blood,Urine NEG (Negative); Color,Urine Yellow (Yellow); Mucus,Urine 1+ /HPF; Protein,Urine <15 mg/dL mg/dL (Negative); Urobilinogen,Urine < 2.0 mg/dL (<2.0)
[2019-07-04 12:25] LABS: HCG Qualitative,Urine Negative (Negative)
[2019-07-04] MEDS ORDERED: GENTAMICIN 40 MG/ML VIAL 2 ML IM ONE (12:49)
[2019-07-04] MEDS ORDERED: AZITHROMYCIN 250 MG TAB PO ONE (12:49)
== END 2019-07-04 13:52 | disposition home or self-care (01) ==
LOC: ED 11:14
DX: N76.0 Acute vaginitis (principal); B96.89 Other specified bacterial agents as the cause of diseases classified elsewhere; Z88.5 Allergy status to narcotic agent; Z88.0 Allergy status to penicillin; Z79.899 Other long term (current) drug therapy; Z86.2 Personal history of diseases of the blood and blood-forming organs and certain disorders involving the immune mechanism; Z98.51 Tubal ligation status
CPT/HCPCS: 81001; 81025; 87210; 87591; 96372; 99284; J1580

== ENCOUNTER 2019-07-17 16:46 | Emergency (ER) | payer SELFPAY ==
[2019-07-17 19:19] LABS: Bilirubin,Urine NEG (Negative); Blood,Urine LG (Negative); Color,Urine Yellow (Yellow); Mucus,Urine FEW /HPF; Urobilinogen,Urine < 2.0 mg/dL (<2.0)
[2019-07-17 19:20] LABS: RBC,Urine > 182.0 /HPF (0.0-6.0)
--- NOTE | 2019-07-17 19:58 | Emergency Department Report ---
HPI - General Chief Complaint: Urogenital-Female Time Seen by Provider: 07/17/19 19:47 - HPI HPI: Room 40 The patient is a 44-year-old female presenting with a chief complaint vaginal discharge. The patient states for 1-2 months she's had intermittent vaginal discharge has been malodorous. Patient states discharges been white. Patient also notes intermittent cramping pelvic pain. Patient denies dysuria or hematuria. Patient denies history of fever ED Past Medical Hx - Past Medical History Previous Medical History?: No Additional medical history: anemia- blood transfusion - Surgical History Additional Surgical History: TUBAL LIGATION - Family History Family history: no significant - Social History Smoking Status: Never Smoker Substance Use Type: None - Medications Home Medications: Home Medications Medication Instructions Recorded Confirmed Last Taken Type Azithromycin [Zithromax TAB] 500 mg PO QDAY #5 tablet 12/25/18 Unknown Rx Ferrous Sulfate [Feosol 325 MG tab] 325 mg PO BID #60 tablet 12/25/18 Unknown Rx medroxyPROGESTERone ACETATE 10 mg PO QDAY #10 tablet 12/25/18 Unknown Rx [Provera] Fluconazole [Diflucan TAB] 100 mg PO QDAY #2 tablet 06/23/19 Unknown Rx Sulfamethoxazole/Trimethoprim 1 each PO BID #14 tablet 06/23/19 Unknown Rx [Bactrim DS TAB] Ciprofloxacin HCl [Ciprofloxacin 500 mg PO Q12HR #6 tab 07/17/19 Unknown Rx TAB] metroNIDAZOLE [Flagyl] 500 mg PO Q12HR #14 tab 07/17/19 Unknown Rx ED Review of Systems ROS: Stated complaint: VAGINAL ODOR/INFECTION Other details as noted in HPI Constitutional: denies: fever Eyes: denies: eye pain ENT: denies: throat pain Respiratory: no symptoms reported Cardiovascular: denies: chest pain Endocrine: no symptoms reported Gastrointestinal: abdominal pain Genitourinary: discharge. denies: dysuria, hematuria Neurological: denies: headache Physical Exam - Physical Exam Vital Signs: Vital Signs 07/17/19 16:49 Temperature 98 F Pulse Rate 70 Respiratory 16 Rate Blood Pressure 112/72 [Right] O2 Sat by Pulse 100 Oximetry Physical Exam: GENERAL: The patient is well-developed well-nourished female lying on stretcher not appearing to be in acute distress. [] HEENT: Normocephalic. Atraumatic. Extraocular motions are intact. Patient has moist mucous membranes. NECK: Supple. Trachea midline CHEST/LUNGS: Clear to auscultation. There is no respiratory distress noted. HEART/CARDIOVASCULAR: Regular. There is no tachycardia. There is no gallop rub or murmur. ABDOMEN: Abdomen is soft, with trace pelvic discomfort to palpation. No rebound or guarding. Patient has normal bowel sounds. There is no abdominal distention. SKIN: There is no rash. There is no edema. There is no diaphoresis. NEURO: The patient is awake, alert, and oriented. The patient is cooperative. The patient has normal speech and gait. MUSCULOSKELETAL: There is no CVA tenderness. There is no evidence of acute injury. ED Course Vital Signs 07/17/19 16:49 Temperature 98 F Pulse Rate 70 Respiratory 16 Rate Blood Pressure 112/72 [Right] O2 Sat by Pulse 100 Oximetry ED Medical Decision Making - Lab Data Laboratory Tests 07/17/19 Unknown Urine Color Yellow Urine Turbidity Slightly-cloudy Urine pH 6.0 Ur Specific [place] 1.018 Urine Protein 30 mg/dl Urine Glucose (UA) Neg Urine Ketones Neg Urine Blood Lg Urine Nitrite Neg Urine Bilirubin Neg Urine Urobilinogen < 2.0 Ur Leukocyte Esterase Neg Urine WBC (Auto) 11.0 H Urine RBC (Auto) > 182.0 U Epithel Cells (Auto) 2.0 Urine Mucus Few Wet prep-no clue cells, yeast or Trichomonas seen - Differential Diagnosis bacteria vaginosis, urethritis, vaginitis, UTI Critical care attestation.: If time is entered above; I have spent that time in minutes in the direct care of this critically ill patient, excluding procedure time. ED Disposition Clinical Impression: UTI (urinary tract infection), Vaginal discharge Disposition: DC- TO HOME OR SELFCARE Is pt being admited?: No Does the pt Need Aspirin: No Condition: Stable Instructions: Vaginitis (ED) Prescriptions: Ciprofloxacin HCl [Ciprofloxacin TAB] 500 mg PO Q12HR #6 tab metroNIDAZOLE [Flagyl] 500 mg PO Q12HR #14 tab Referrals: PRIMARY CAREMD [Primary Care Provider] - 3-5 Days VAIBHAV HELLER MD [Staff Physician] - 3-5 Days (Dr. Heller is an [facility]. Please follow with her for further evaluation) Time of Disposition: 21:13
[2019-07-17] MEDS ORDERED: GENTAMICIN 40 MG/ML VIAL 2 ML IM ONE (20:02)
[2019-07-17] MEDS ORDERED: AZITHROMYCIN 1 GM ORAL PWDR PACKET PO ONE (20:02)
[2019-07-17 21:24] LABS: HCG Qualitative,Urine Negative (Negative)
[2019-07-17 21:47] VITALS: BP 118/66
== END 2019-07-17 21:37 | disposition home or self-care (01) ==
LOC: ED 16:46
DX: N39.0 Urinary tract infection, site not specified (principal); N89.8 Other specified noninflammatory disorders of vagina; D64.9 Anemia, unspecified; Z98.51 Tubal ligation status; Z79.899 Other long term (current) drug therapy; Z88.0 Allergy status to penicillin; Z88.5 Allergy status to narcotic agent
CPT/HCPCS: 81001; 81025; 87086; 87210; 87591; 96372; 99284; J1580

== ENCOUNTER 2022-01-04 12:07 | Emergency (ER) | payer SELFPAY ==
[2022-01-04 12:28] VITALS: BP 119/72
[2022-01-04] MEDS ORDERED: ACETAMINOPHEN 500 MG TAB PO ONE (12:55)
--- NOTE | 2022-01-04 12:56 | Emergency Department Report ---
ED Female HPI - General Chief complaint: Vaginal Bleeding Stated complaint: Vaginal bleeding Time Seen by Provider: 01/04/22 12:55 Source: patient, RN notes reviewed, old records reviewed Mode of arrival: Ambulatory Limitations: No Limitations - History of Present Illness Initial comments: During the history and physical examination, I am chaperoned by Chauncey Gilbert The patient is a 46-year-old female, with a history of fibroids and heavy vaginal bleeding, who presents to the ER today with a complaint of vaginal bleeding and cramping. She does not believe that she is . She reports that she had an ultrasound performed at [facility] recently, which showed fibroids. She was instructed to follow-up with an outpatient chief of service. She also reports that she followed up with [facility] and reportedly had a Pap smear last month which was unremarkable. She denies urinary symptoms. She has used a few pad since her bleeding started last night MD Complaint: vaginal bleeding -: Gradual Location: suprapubic Radiation: non-radiating Severity: mild Quality: cramping Consistency: constant Improves with: none Worsens with: none Are you Now?: No Associated Symptoms: denies other symptoms, vaginal bleeding - Related Data Previous Rx's Medication Instructions Recorded Last Taken Type medroxyPROGESTERone ACETATE 10 mg PO QDAY #10 tablet 12/25/18 Unknown Rx [Provera] metroNIDAZOLE [Flagyl] 500 mg PO Q12HR #14 tab 07/17/19 Unknown Rx Ferrous Sulfate [Feosol 325 MG tab] 325 mg PO BID #60 tablet 01/04/22 Unknown Rx Ibuprofen [Motrin 600 MG tab] 600 mg PO Q6HR PRN #30 tablet 01/04/22 Unknown Rx Allergies Allergy/AdvReac Type Severity Reaction Status Date / Time oxycodone [From Percocet] Allergy Itching Verified 03/21/19 17:01 Penicillins Allergy Hives Verified 03/21/19 17:01 ED Review of Systems ROS: Stated complaint: HEMMORRAGE Other details as noted in HPI Comment: All other systems reviewed and negative Endocrine: no symptoms reported Gastrointestinal: abdominal pain. denies: nausea, vomiting, diarrhea Genitourinary: abnormal menses Musculoskeletal: as per HPI Skin: as per HPI Neurological: as per HPI Psychiatric: as per HPI Hematological/Lymphatic: as per HPI ED Past Medical Hx - Past Medical History Additional medical history: anemia- blood transfusion - Surgical History Additional Surgical History: TUBAL LIGATION - Social History Smoking Status: Never Smoker Substance Use Type: None - Medications Home Medications: Home Medications Medication Instructions Recorded Confirmed Last Taken Type medroxyPROGESTERone ACETATE 10 mg PO QDAY #10 tablet 12/25/18 Unknown Rx [Provera] metroNIDAZOLE [Flagyl] 500 mg PO Q12HR #14 tab 07/17/19 Unknown Rx Ferrous Sulfate [Feosol 325 MG tab] 325 mg PO BID #60 tablet 01/04/22 Unknown Rx Ibuprofen [Motrin 600 MG tab] 600 mg PO Q6HR PRN #30 tablet 01/04/22 Unknown Rx ED Physical Exam - General Limitations: No Limitations General appearance: alert, in no apparent distress - Head Head exam: Present: atraumatic, normocephalic - Eye Eye exam: Present: normal appearance, EOMI. Absent: nystagmus - ENT ENT exam: Present: normal exam, normal orophraynx, mucous membranes moist, norm al external ear exam - Neck Neck exam: Present: normal inspection, full ROM. Absent: tenderness, meningismus - Respiratory Respiratory exam: Present: normal lung sounds bilaterally. Absent: respiratory distress, wheezes, rales, rhonchi, stridor, decreased breath sounds - Cardiovascular Cardiovascular Exam: Present: regular rate, normal rhythm, normal heart sounds. Absent: bradycardia, tachycardia, irregular rhythm, systolic murmur, diastolic murmur, rubs, gallop - GI/Abdominal GI/Abdominal exam: Present: soft. Absent: distended, tenderness, guarding, rebound, rigid, pulsatile mass - External exam: Present: normal external exam, bleeding. Absent: erythema, swelling, lesions, lacerations, ecchymosis Speculum exam: Present: normal speculum exam, vaginal bleeding, other (Chaperoned by Chauncey Gilbert). Absent: erythema, vaginal discharge, cervical discharge, foreign body - Extremities Exam Extremities exam: Present: normal inspection, full ROM, other (2+ pulses noted in the bilateral upper and lower extremities. There is no palpable cord. negative Homans sign. Muscular compartments are soft. The pelvis is stable.). Absent: pedal edema, calf tenderness - Back Exam Back exam: Present: normal inspection, full ROM. Absent: tenderness, CVA tenderness (R), CVA tenderness (L), paraspinal tenderness, vertebral tenderness - Neurological Exam Neurological exam: Present: alert, oriented X3, normal gait, other (No facial droop. Tongue midline. Extraocular movements intact bilaterally. Facial sensation intact to light touch in V1, V2, V3 distribution bilaterally. 5 and a 5 strength in 4 extremities. Sensation intact to light touch in 4 e xtremities.). Absent: motor sensory deficit - Psychiatric Psychiatric exam: Present: normal affect, normal mood - Skin Skin exam: Present: warm, dry, intact, normal color. Absent: rash ED Course Vital Signs 01/04/22 12:24 Temperature 98.4 F Pulse Rate 96 H Respiratory 18 Rate Blood Pressure 119/72 [Right] O2 Sat by Pulse 97 Oximetry ED Medical Decision Making - Lab Data Result diagrams: 01/04/22 13:03 Vital Signs 01/04/22 12:24 Temperature 98.4 F Pulse Rate 96 H Respiratory 18 Rate Blood Pressure 119/72 [Right] O2 Sat by Pulse 97 Oximetry Lab Results 01/04/22 01/04/22 Range/Units 13:03 13:03 WBC 11.4 H (4.5-11.0) K/mm3 RBC 3.69 (3.65-5.03) M/mm3 Hgb 10.8 (10.1-14.3) gm/dl Hct 32.9 (30.3-42.9) % MCV 89 (79-97) fl MCH 29 (28-32) pg MCHC 33 (30-34) % RDW 14.7 (13.2-15.2) % Plt Count 217 (140-440) K/mm3 HCG, Quant < 2 (0-4) mIU/mL - Medical Decision Making Differential diagnosis, including but not limited to: Fibroids, menstruation, test Assessment and plan: 46-year-old female presenting with vaginal bleeding. She is afebrile with reassuring vital signs. CBC essentially unremarkable. hCG negative. Patient counseled on natural history of menstruation and possible menopause. She may follow-up with an outpatient [facility]. Tylenol, Motrin, iron sulfate as needed. Return precautions reviewed. All questions answered. Critical care attestation.: If time is entered above; I have spent that time in minutes in the direct care of this critically ill patient, excluding procedure time. ED Disposition Clinical Impression: Vaginal bleeding, Negative test, Uterine fibroid Disposition: HOME / SELF CARE / HOMELESS Is pt being admited?: No Does the pt Need Aspirin: No Condition: Good Instructions: Dysfunctional Uterine Bleeding Additional Instructions: Patient is found to not be today. Blood counts are acceptable and within normal limits. Patient is experiencing menstruation with vaginal bleeding. Patient should follow-up with a chief of service within the next week to establish outpatient care. Take the prescribed medications as needed and directed. Iron sulfate may cause constipation, black stool, and abdominal cramping. Please return to the emergency room right away with new pain, worsened pain, migration of pain, projectile vomiting, change in mental status, confusion, inability tolerate liquid feeds, new, worsened or different symptoms not present on the initial emergency room evaluation The patient is found to not be today. Referrals: [facility] [Provider Group] - 3-5 Days [facility] - 3-5 Days [facility] [Provider Group] - 3-5 Days Forms: Work/School Release Form(ED)
[2022-01-04 13:16] LABS: Hematocrit 32.9 % (30.3-42.9); Hemoglobin 10.8 gm/dl (10.1-14.3); Mean Corpuscular HGB Conc 33 % (30-34); Mean Corpuscular Volume 89 fl (79-97); Platelet Count 217 K/mm3 (140-440); Red Blood Count 3.69 M/mm3 (3.65-5.03); Red Cell Distribution Width 14.7 % (13.2-15.2)
[2022-01-04] MEDS ORDERED: IBUPROFEN 600 MG TAB PO ONE (13:40)
== END 2022-01-04 14:50 | disposition home or self-care (01) ==
LOC: ED 12:07
DX: D25.9 Leiomyoma of uterus, unspecified (principal); N93.9 Abnormal uterine and vaginal bleeding, unspecified; Z98.51 Tubal ligation status; Z88.0 Allergy status to penicillin; Z88.5 Allergy status to narcotic agent; Z79.899 Other long term (current) drug therapy
CPT/HCPCS: 36415; 84702; 85027; 99283